=== PATIENT | female | born 1930 | race Hispanic/Latino ===

== ENCOUNTER 2019-09-08 15:04 | Emergency (ER) | payer MEDICARE ==
[2019-09-08 15:49] LABS: BASOPHILS % (AUTO) 0.3 % (0.0-5.0); EOSINOPHILS % (AUTO) 0.5 % (0.0-8.0); HEMATOCRIT 42.2 % (36-48); LYMPHOCYTES % (AUTO) 20.7 % (21.0-51.0); MEAN CORPUSCULAR HGB CONC 32.7 g/dL (32.0-36.0); MEAN CORPUSCULAR VOLUME 97.9 fL (79-99); MONOCYTES % (AUTO) 5.7 % (3.0-13.0); NEUTROPHILS % (AUTO) 72.6 % (40.0-77.0); PLATELET COUNT (AUTO) 175 K/uL (130-400); RED BLOOD CELL COUNT(AUTO) 4.31 MIL/uL (4.00-5.50); RED CELL DISTRIBUTION WIDTH 12.3 % (11.0-15.5); WHITE BLOOD COUNT (AUTO) 6.3 K/uL (4.8-10.8)
[2019-09-08 16:02] LABS: INR 0.94 (0.85-1.15); PROTHROMBIN TIME 10.2 SEC (9.6-11.6)
[2019-09-08 16:03] LABS: CARBON DIOXIDE 28 mmol/L (21-32); CHLORIDE 105 mmol/L (101-111); CREATININE 1.2 mg/dL (0.5-1.5); GLOMERULAR FILTR. RATE CALC 45 mL/min (>60); GLUCOSE,RANDOM 82 mg/dL (70-105); POTASSIUM 4.3 mmol/L (3.5-5.1); SODIUM SERUM 145 mmol/L (136-145); UREA NITROGEN, BLOOD 30 mg/dL (7-18)
[2019-09-08 16:09] LABS: APPEARANCE,URINE CLEAR (CLEAR); BILIRUBIN,URINE MODERATE (NEGATIVE); COLOR,URINE YELLOW (YELLOW); GLUCOSE, URINE (UA) NEGATIVE (NEGATIVE); KETONES,URINE 15 mg/dL (NEGATIVE); LEUKOCYTE ESTERASE ,URINE NEGATIVE (NEGATIVE); NITRATE,URINE NEGATIVE (NEGATIVE); OCCULT BLOOD,URINE MODERATE (NEGATIVE); PH,URINE 5.5 (5.0-8.0); PROTEIN,URINE TRACE mg/dL (NEGATIVE); UROBILINOGEN,URINE 0.2 mg/dL (0.2-1.0)
[2019-09-08 16:29] LABS: ALANINE AMINOTRANSFERASE 17 U/L (12-78); ASPARTATE AMINOTRANSFERASE 44 U/L (10-37); BILIRUBIN,TOTAL 0.6 mg/dL (0.2-1.0); MYOGLOBIN 1431 ng/mL (10-92); TOTAL PROTEIN, SERUM 8.2 g/dL (6.0-8.3); TROPONIN I < 0.04 ng/mL (0.00-0.06)
[2019-09-08 16:31] LABS: CREATINE KINASE, TOTAL 494 U/L (21-232)
[2019-09-08 16:31] LABS: BACTERIA,URINE Few /HPF (None Seen); SQUAMOUS EPITHELIAL CELL,UR Moderate /HPF (0-2); WBC,URINE 0-1 /HPF (0-1)
[2019-09-08] MEDS ORDERED: CEFTRIAXONE SODIUM 2 GM VIAL ONE (16:53)
== END 2019-09-08 19:07 | disposition home or self-care (01) ==
LOC: EDH 15:04
DX: R53.1 Weakness (principal); R41.82 Altered mental status, unspecified; F32.9 Major depressive disorder, single episode, unspecified; E78.5 Hyperlipidemia, unspecified; F03.90 Unspecified dementia, unspecified severity, without behavioral disturbance, psychotic disturbance, mood disturbance, and anxiety
CPT/HCPCS: 36415; 70450; 71045; 80053; 81001; 82550; 83605; 83874; 84145; 84484; 85025; 85610; 85730; 87040 ×2; 87088; 93005; 96374; 99285; J0696

== ENCOUNTER 2019-09-11 15:24 | Inpatient (IN) | payer MEDICARE ==
[~2019-09-11] VITALS: Ht 162.6 cm; Wt 50.7 kg
[2019-09-11 17:01] LABS: BASOPHILS % (AUTO) 0.5 % (0.0-5.0); EOSINOPHILS % (AUTO) 0.5 % (0.0-8.0); HEMATOCRIT 41.2 % (36-48); LYMPHOCYTES % (AUTO) 20.3 % (21.0-51.0); MEAN CORPUSCULAR HEMOGLOBIN 31.7 pg (27.0-33.0); MONOCYTES % (AUTO) 6.2 % (3.0-13.0); NEUTROPHILS % (AUTO) 72.3 % (40.0-77.0); PLATELET COUNT (AUTO) 177 K/uL (130-400); RED BLOOD CELL COUNT(AUTO) 4.16 MIL/uL (4.00-5.50); RED CELL DISTRIBUTION WIDTH 12.8 % (11.0-15.5); WHITE BLOOD COUNT (AUTO) 6.1 K/uL (4.8-10.8)
[2019-09-11 17:12] LABS: CREATININE 1.3 mg/dL (0.5-1.5); POTASSIUM 3.6 mmol/L (3.5-5.1)
[2019-09-11 17:17] LABS: ALBUMIN 4.1 g/dL (3.5-5.0); BILIRUBIN,TOTAL 0.4 mg/dL (0.2-1.0); TOTAL PROTEIN, SERUM 8.4 g/dL (6.0-8.3)
[2019-09-11] MEDS ORDERED: SODIUM CHLORIDE 0.9% 1000ML 1,000 ML IV SCH (18:39)
[2019-09-11] MEDS ORDERED: LACTULOSE 20 GM/30 ML UDCUP PO PRN (18:45)
[2019-09-11] MEDS ORDERED: ACETAMINOPHEN 325 MG TAB PO PRN ×2 (18:45)
[2019-09-11] MEDS ORDERED: ONDANSETRON HCL 4 MG/2 ML VIAL IV PRN (18:45)
[2019-09-11 20:25] LABS: CREATINE KINASE, TOTAL 218 U/L (21-232); MYOGLOBIN 898 ng/mL (10-92)
[2019-09-11] MEDS: INSULIN HUMULIN R 100 UNIT/ML 3ML SQ SCH (21:00)
[2019-09-11] MEDS ORDERED: DEXTROSE 50%-WATER 50 ML DISP.SYRIN IV ONE (22:12)
[2019-09-11] MEDS ORDERED: FAMOTIDINE/PF 20 MG/2 ML VIAL IV ONE (22:23)
[2019-09-12] MEDS ORDERED: DEXTROSE 50%-WATER 50 ML DISP.SYRIN IV ONE (01:46)
[2019-09-12] MEDS ORDERED: DEXTROSE 5 % AND 0.9 % NACL 1,000 ML IV ONE (02:06)
[2019-09-12] MEDS: DEXTROSE 5 % AND 0.9 % NACL 1,000 ML IV SCH ×2 (02:15→12:15)
[2019-09-12] MEDS ORDERED: DEXTROSE 50%-WATER 50 ML DISP.SYRIN IV PRN (02:15)
[2019-09-12] MEDS ORDERED: GLUCAGON 1MG KIT 1 MG ML IM PRN ×2 (02:15)
[2019-09-12 05:49] LABS: BASOPHILS % (AUTO) 0.4 % (0.0-5.0); EOSINOPHILS % (AUTO) 0.3 % (0.0-8.0); HEMATOCRIT 36.8 % (36-48); LYMPHOCYTES % (AUTO) 9.9 % (21.0-51.0); MEAN CORPUSCULAR HGB CONC 32.6 g/dL (32.0-36.0); MEAN CORPUSCULAR VOLUME 98.1 fL (79-99); MONOCYTES % (AUTO) 6.4 % (3.0-13.0); NEUTROPHILS % (AUTO) 82.5 % (40.0-77.0); PLATELET COUNT (AUTO) 162 K/uL (130-400); RED BLOOD CELL COUNT(AUTO) 3.75 MIL/uL (4.00-5.50); RED CELL DISTRIBUTION WIDTH 12.7 % (11.0-15.5); WHITE BLOOD COUNT (AUTO) 7.4 K/uL (4.8-10.8)
[2019-09-12 05:55] LABS: CREATININE 0.9 mg/dL (0.5-1.5); POTASSIUM 3.5 mmol/L (3.5-5.1)
[2019-09-12] MEDS: INSULIN HUMULIN R 100 UNIT/ML 3ML SQ SCH ×4 (07:30→21:00)
[2019-09-12 09:19] VITALS: BP 154/61
--- NOTE | 2019-09-12 09:30 | NUR ---
DYSPHAGIA EVAL COMPLETED HIGH RISK FOR ASPIRATION AT THIS TIME. RECOMMEND SHEEP KILLER ALTERNATE MEANS OF NUTRITION/HYDRATION. MAGNETIC TESTER COORDINATED WITH NURSE BEYER OF RESULTS AND RECOMMENDATIONS. Addendum: 09/12/[address] MARANDA Amended: Links added.
--- NOTE | 2019-09-12 10:04 | NUR ---
UPDATED MD ON DISCHARGE PLAN-- AWAITING RESPONSE CRISELDA PERAZA FROM [facility] EMERGENCY DEPARTMENT- PT WILL GO TO [facility] PER REP/FAMILY PLAN- DIRECT ADMIT WAS BEING ARRANGED PRIOR TO HER RECNET DECLINE THAT [facility]US HER TO [facility] REQUESTING THAT REFERRAL BE INITIATED SO THAT SHE CAN DO THE COVID SCREENING SWAB NEEDED FOR ADMISSION TO THAT FACILITY. RATIONALE :SO THERE IS NO DELAY WHEN PATIENT READY FOR DISCHARGE DR GABRIEL CONTACTED WITH THIS INFORMATION. AWAITING RESPONSE Addendum: 09/12/19 at 1007 by AISSATOU GIRON RN CM Amended: Links added.
--- NOTE | 2019-09-12 10:30 | NUR ---
IA DONE WITH FAMILY VIA PHONE SPOKE WITH FABY DORADO, RE DISCHARGE PLANNING PATIENT LIVES WITH SPOUSE, ALSO DEBILITATED HAS ALL DME WALKER, RENE, SHOWER CHAIR. NO PROVIDER . FABY SATES THAT THE PLAN IS TO ADMIT TO [facility] ON DISCHARGE. RAMAN RECIEVED, CALL TO , ORDER FOR REFERRAL [facility] CALLED, WHO CAME SWABBED PATIENT FOR COVID SCREENING FOR ADMITTO SNF Addendum: 09/13/19 at 0941 by AISSATOU GIRON RN Amended: Links added.
[2019-09-12 11:30] VITALS: BP 144/49
[2019-09-12] MEDS: FAMOTIDINE/PF 20 MG/2 ML VIAL IV SCH (11:33)
--- NOTE | 2019-09-12 11:49 | NUR ---
RD NOTIFICATION Pt admitted with GBW, poor appetite, AMS. Hx of dementia, DM, HTN. Pt with poor appetite, inadequate oral intake x 5 days. Swallowing difficulty. S/p SECURITIES COMPLIANCE EXAMINER eval; MCFP altered means nutrition recommended. Pending feeding tube placement. Pt Height and weight unknown. Tube feeding, Glucerna 1.5 @25mls can be initiated, 100mls Free H2O Flushes Q6hrs. RD to follow up with tube feeding recommendations once Pt data is updated. Addendum: 09/12/19 at [address] Amended: Links added.
[2019-09-12] MEDS ORDERED: ATOR10 PEG ×2 (12:38)
[2019-09-12] MEDS ORDERED: SERT100T12 PEG ×2 (12:38)
[2019-09-12] MEDS ORDERED: LISI-617 PEG ×2 (12:38)
[2019-09-12] MEDS ORDERED: METF-446 PEG ×2 (12:38)
[2019-09-12] MEDS ORDERED: MEMA1CAP3 PEG ×2 (12:38)
[2019-09-12 16:09] VITALS: BP 155/49
[2019-09-12 19:31] VITALS: BP 126/69
[2019-09-12 23:43] VITALS: BP 157/51
[2019-09-13] MEDS: DEXTROSE 5 % AND 0.9 % NACL 1,000 ML IV SCH ×2 (02:07→09:43)
[2019-09-13 03:56] VITALS: BP 143/57
[2019-09-13] MEDS: INSULIN HUMULIN R 100 UNIT/ML 3ML SQ SCH ×4 (06:57→21:00)
[2019-09-13 08:00] VITALS: BP 160/53
[2019-09-13] MEDS: METFORMIN HCL 500 MG TABLET PO SCH (08:00)
[2019-09-13] MEDS: [UNRECOGNIZED DRUG - OTHER] PO SCH (09:00)
[2019-09-13] MEDS: LISINOPRIL 5 MG TABLET PO SCH (09:00)
[2019-09-13] MEDS: SERTRALINE HCL 50 MG TABLET PO SCH ×2 (09:00→21:00)
--- NOTE | 2019-09-13 09:41 | NUR ---
MBSS RESULTS RELAYED TO MD CALL BACK, PLEASE CALL FAMILY AND DISCUSS REUSLT - ASK IF THEY WANT PEG. IF- THEY DO- CALL FOR GI,. CALL ATTEMPTED TO BOTH NUBMERS ON FACE SHEET- FABY NICHOLS. NO ANSWER. VOICE MESSAGE LEFT. WILL FOLLOW UP Addendum: 09/13/19 at 0965 by AISSATOU GIRON RN CM Amended: Links added.
[2019-09-13] MEDS: FAMOTIDINE/PF 20 MG/2 ML VIAL IV SCH (09:52)
[2019-09-13 10:49] VITALS: BP 155/52
--- NOTE | 2019-09-13 11:20 | NUR ---
ORAL CARE PERFORMED USING 24 HR ORAL CARE KIT; PT. RELUCTANT TO ALLOW CARE PERFORMED BUT ABLE TO ACCOMPLISH.
[2019-09-13] MEDS: SODIUM BICARB 8.4% 50ML SYRING 150 MEQ in DEXTROSE 5%-WATER 1,000 ML IV SCH (12:52)
[2019-09-13 14:51] LABS: CREATINE KINASE, TOTAL 174 U/L (21-232); MYOGLOBIN 158 ng/mL (10-92)
[2019-09-13 15:45] VITALS: BP 157/64
--- NOTE | 2019-09-13 16:28 | NUR ---
RD UPDATE Anthropometric data recorded. Pt pending PEG placement. RD provided Tube feeding recommendations. Recommendations placed in Pt chart. Bolus feedings recommended upon discharge. Recommend continuous tube feeding: Glucerna 1.5 initiated at 20mls for first 10hours. increase rate as tolerated by 5ml every 5 hours to goal. Goal Rate: 40mls/hr to provide 1440kcal, 79gm protein, 729mL free H2O. Flushes: [address] to continue to monitor. Please notify as additional nutrition concerns arise. Thank you.
[2019-09-13 20:11] VITALS: BP 176/80
[2019-09-13] MEDS: ATORVASTATIN CALCIUM 10 MG TABLET PO SCH (21:00)
[2019-09-13 21:22] LABS: CREATINE KINASE, TOTAL 194 U/L (21-232); MYOGLOBIN 293 ng/mL (10-92)
[2019-09-13] MEDS: HYDRALAZINE HCL 20 MG/ML VIAL IV PRN (21:27)
[2019-09-13 23:15] VITALS: BP 145/88
[2019-09-14 03:42] VITALS: BP 161/67
[2019-09-14 04:05] LABS: BASOPHILS % (AUTO) 0.2 % (0.0-5.0); EOSINOPHILS % (AUTO) 1.1 % (0.0-8.0); HEMATOCRIT 38.2 % (36-48); LYMPHOCYTES % (AUTO) 17.9 % (21.0-51.0); MEAN CORPUSCULAR HEMOGLOBIN 31.9 pg (27.0-33.0); MEAN CORPUSCULAR VOLUME 93.9 fL (79-99); MONOCYTES % (AUTO) 7.8 % (3.0-13.0); NEUTROPHILS % (AUTO) 72.7 % (40.0-77.0); PLATELET COUNT (AUTO) 167 K/uL (130-400); RED BLOOD CELL COUNT(AUTO) 4.07 MIL/uL (4.00-5.50); RED CELL DISTRIBUTION WIDTH 11.9 % (11.0-15.5)
[2019-09-14 04:30] LABS: ALANINE AMINOTRANSFERASE 29 U/L (12-78); ALBUMIN 3.1 g/dL (3.5-5.0); ASPARTATE AMINOTRANSFERASE 44 U/L (10-37); BILIRUBIN,TOTAL 0.4 mg/dL (0.2-1.0); CARBON DIOXIDE 32 mmol/L (21-32); CHLORIDE 102 mmol/L (101-111); CREATININE 0.8 mg/dL (0.5-1.5); GLOMERULAR FILTR. RATE CALC 72 mL/min (>60); GLUCOSE,RANDOM 123 mg/dL (70-105); PHOSPHORUS 1.4 mg/dL (2.5-4.9); SODIUM SERUM 139 mmol/L (136-145); TOTAL PROTEIN, SERUM 6.7 g/dL (6.0-8.3); UREA NITROGEN, BLOOD 11 mg/dL (7-18)
[2019-09-14] MEDS ORDERED: LIDOCAINE HCL-MPF 1% 2ML VIAL IV PRN (04:45)
[2019-09-14] MEDS ORDERED: POTASSIUM CHLORIDE 20MEQ/100ML 100 ML IV ONE (04:56)
[2019-09-14] MEDS: INSULIN HUMULIN R 100 UNIT/ML 3ML SQ SCH ×4 (06:30→21:00)
[2019-09-14 08:00] VITALS: BP 169/75
[2019-09-14] MEDS: METFORMIN HCL 500 MG TABLET PO SCH (08:00)
[2019-09-14] MEDS: LISINOPRIL 5 MG TABLET PO SCH (09:00)
[2019-09-14] MEDS: SERTRALINE HCL 50 MG TABLET PO SCH ×2 (09:00→20:47)
[2019-09-14] MEDS: [UNRECOGNIZED DRUG - OTHER] PO SCH (09:00)
[2019-09-14] MEDS: FAMOTIDINE/PF 20 MG/2 ML VIAL IV SCH (09:06)
[2019-09-14] MEDS: HYDRALAZINE HCL 20 MG/ML VIAL IV PRN (09:06)
[2019-09-14] MEDS: POTASSIUM CHLORIDE 10MEQ/100ML 100 ML IV PRN (09:07)
[2019-09-14 09:31] LABS: CREATINE KINASE, TOTAL 315 U/L (21-232); MYOGLOBIN 337 ng/mL (10-92)
[2019-09-14] MEDS ORDERED: MAGNESIUM 2GM PREMIX 50ML 50 ML IV PRN (10:00)
[2019-09-14 11:21] VITALS: BP 145/100
[2019-09-14 14:02] LABS: CREATINE KINASE, TOTAL 305 U/L (21-232); MYOGLOBIN 407 ng/mL (10-92)
[2019-09-14 16:00] VITALS: BP 177/80
[2019-09-14 19:00] VITALS: BP 154/59
[2019-09-14] MEDS: ATORVASTATIN CALCIUM 10 MG TABLET PO SCH (20:47)
[2019-09-14 21:33] LABS: CREATINE KINASE, TOTAL 316 U/L (21-232); MYOGLOBIN 374 ng/mL (10-92)
[2019-09-14 23:00] VITALS: BP 170/73
[2019-09-15] VITALS (25 sets, daily range): BP systolic 65–170; BP diastolic 37–69
[2019-09-15] MEDS: HYDRALAZINE HCL 20 MG/ML VIAL IV PRN (00:05)
[2019-09-15 06:03] LABS: BASOPHILS % (AUTO) 0.2 % (0.0-5.0); EOSINOPHILS % (AUTO) 1.5 % (0.0-8.0); HEMATOCRIT 37.1 % (36-48); LYMPHOCYTES % (AUTO) 21.5 % (21.0-51.0); MEAN CORPUSCULAR HEMOGLOBIN 32.7 pg (27.0-33.0); MEAN CORPUSCULAR HGB CONC 34.5 g/dL (32.0-36.0); MEAN CORPUSCULAR VOLUME 94.6 fL (79-99); MONOCYTES % (AUTO) 10.2 % (3.0-13.0); NEUTROPHILS % (AUTO) 66.4 % (40.0-77.0); PLATELET COUNT (AUTO) 158 K/uL (130-400); RED BLOOD CELL COUNT(AUTO) 3.92 MIL/uL (4.00-5.50); RED CELL DISTRIBUTION WIDTH 12.3 % (11.0-15.5); WHITE BLOOD COUNT (AUTO) 5.9 K/uL (4.8-10.8)
[2019-09-15 06:27] LABS: BILIRUBIN,TOTAL 0.4 mg/dL (0.2-1.0); CREATININE 0.8 mg/dL (0.5-1.5); TOTAL PROTEIN, SERUM 6.3 g/dL (6.0-8.3)
[2019-09-15] MEDS: INSULIN HUMULIN R 100 UNIT/ML 3ML SQ SCH ×4 (06:40→21:00)
[2019-09-15] MEDS: LISINOPRIL 5 MG TABLET PO SCH (07:53)
[2019-09-15] MEDS: [UNRECOGNIZED DRUG - OTHER] PO SCH (07:53)
[2019-09-15] MEDS: METFORMIN HCL 500 MG TABLET PO SCH (07:53)
[2019-09-15] MEDS: FAMOTIDINE/PF 20 MG/2 ML VIAL IV SCH (07:53)
[2019-09-15] MEDS: SERTRALINE HCL 50 MG TABLET PO SCH ×2 (07:53→22:21)
[2019-09-15] MEDS ORDERED: PROPOFOL 10 MG/ML 20ML VIAL IV ONE (08:04)
[2019-09-15] MEDS ORDERED: SUCCINYLCHOLINE CHLORIDE 20 MG/ML 10 ML VIAL ONE (08:05)
[2019-09-15] MEDS ORDERED: LIDOCAINE HCL-MPF 2% 5ML VIAL ONE (08:06)
[2019-09-15] MEDS ORDERED: PHENYLEPHRINE HCL 10 MG/ML 1ML VIAL IV ONE (08:16)
[2019-09-15] MEDS ORDERED: EPHEDRINE SULFATE 50 MG/ML AMPULE ONE (08:25)
[2019-09-15 10:23] LABS: CREATINE KINASE, TOTAL 214 U/L (21-232); MYOGLOBIN 209 ng/mL (10-92)
--- NOTE | 2019-09-15 13:15 | NUR ---
SPOKE WITH PT'S DAUGHTER AND SHE VOICED HER CONCERN REGARDING PATIENT'S LEFT ARM WEAKNESS THAT IS NEW TO ADMISSION. I INFOR[facility] THIS. NO ORDERS AT THIS TIME.
[2019-09-15] MEDS ORDERED: POTASSIUM CHLORIDE 10% ELIXIR 20 MEQ/15 ML UDCUP PO SCH (16:45)
--- NOTE | 2019-09-15 17:00 | NUR ---
STARTED TUBE FEEDING, GLUCERNA 1.5 AT 20ML/HR RECOMMENDED BY SUPERIOR COURT JUDGE. FLUSHED PEG TUBE WITH 130ML OF WATER. HOB ELEVATED AT 35DEGREES. TUBING SECURED.
--- NOTE | 2019-09-15 19:42 | NUR ---
ZOZIE F/U ASHLYN spoke to Filomena with [facility]. States pt is accepted pending their COVID test. States she anticipates results for tomorrow. CM faxed COVID form.
[2019-09-15] MEDS: ATORVASTATIN CALCIUM 10 MG TABLET PO SCH (22:21)
[2019-09-15] MEDS: POTASSIUM CHLORIDE 10% ELIXIR 20 MEQ/15 ML UDCUP PO SCH (22:22)
[2019-09-15] MEDS: SODIUM BICARB 8.4% 50ML SYRING 150 MEQ in DEXTROSE 5%-WATER 1,000 ML IV SCH (22:24)
[2019-09-16 04:12] VITALS: BP 122/47
[2019-09-16 05:20] LABS: BASOPHILS % (AUTO) 0.1 % (0.0-5.0); EOSINOPHILS % (AUTO) 0.8 % (0.0-8.0); HEMATOCRIT 28.7 % (36-48); MEAN CORPUSCULAR HEMOGLOBIN 32.5 pg (27.0-33.0); MEAN CORPUSCULAR HGB CONC 33.4 g/dL (32.0-36.0); MEAN CORPUSCULAR VOLUME 97.3 fL (79-99); MONOCYTES % (AUTO) 6.2 % (3.0-13.0); NEUTROPHILS % (AUTO) 82.5 % (40.0-77.0); PLATELET COUNT (AUTO) 103 K/uL (130-400); RED BLOOD CELL COUNT(AUTO) 2.95 MIL/uL (4.00-5.50); RED CELL DISTRIBUTION WIDTH 12.9 % (11.0-15.5); WHITE BLOOD COUNT (AUTO) 8.3 K/uL (4.8-10.8)
[2019-09-16] MEDS: INSULIN HUMULIN R 100 UNIT/ML 3ML SQ SCH ×3 (06:48→15:44)
[2019-09-16 07:00] VITALS: BP 133/63
[2019-09-16 07:40] LABS: ALBUMIN 2.7 g/dL (3.5-5.0); BILIRUBIN,TOTAL 0.3 mg/dL (0.2-1.0); CREATININE 0.9 mg/dL (0.5-1.5); POTASSIUM 3.9 mmol/L (3.5-5.1); TOTAL PROTEIN, SERUM 6.1 g/dL (6.0-8.3)
--- NOTE | 2019-09-16 08:42 | NUR ---
RD UPDATE PEG placement notification received. Tube Feeding recommendations placed in Pt chart 09/13/19. Recommend resume continuous tube feedings. Recommend initiate continuous Glucerna 1.5 @20mls/hour for first 5 hours. Increase rate as tolerated by 5mL every 5 hours to goal Goal rate of 40mls/hr to provide 1440kcal, 79gm protein, 729mL free H2O. Recommended flushes: 130mL Q6hrs. Bolus feedings also provided in Pt chart.
[2019-09-16] MEDS: [UNRECOGNIZED DRUG - OTHER] PO SCH (09:00)
[2019-09-16] MEDS: FAMOTIDINE/PF 20 MG/2 ML VIAL IV SCH (09:39)
[2019-09-16] MEDS: METFORMIN HCL 500 MG TABLET PO SCH (09:39)
[2019-09-16] MEDS: SERTRALINE HCL 50 MG TABLET PO SCH ×2 (09:39→19:58)
[2019-09-16] MEDS: POTASSIUM CHLORIDE 10% ELIXIR 20 MEQ/15 ML UDCUP PO SCH (09:39)
[2019-09-16] MEDS: LISINOPRIL 5 MG TABLET PO SCH (09:39)
[2019-09-16 11:00] VITALS: BP 136/51
--- NOTE | 2019-09-16 13:51 | NUR ---
CM Note: [facility] approval, pending covid result CM spoke to Filomena segura/[facility], received updated clinicals. Pt has approval, just pending covid result that was sent out last week. Will call CM once pt clear to go, aware there is dc ordered today. EMS arranged and faxed for today, primary nurse to call [facility] once pt ready to DC. Primary nurse aware. CM to cont to follow up.
[2019-09-16 15:20] VITALS: BP 158/62
--- NOTE | 2019-09-16 16:15 | NUR ---
[facility] CONSULT PER PATIENT'S NURSE VIRIDIANA BEYER WOUNDS PRESENT. Addendum: 09/17/19 at 0808 by SABI CANSECO LVN Amended: Links added.
[2019-09-16] MEDS: SODIUM BICARB 8.4% 50ML SYRING 150 MEQ in DEXTROSE 5%-WATER 1,000 ML IV SCH (17:44)
[2019-09-16 19:10] VITALS: BP 149/56
[2019-09-16] MEDS: ATORVASTATIN CALCIUM 10 MG TABLET PO SCH (19:58)
[2019-09-17 00:05] VITALS: BP 127/77
[2019-09-17 04:09] VITALS: BP 123/65
[2019-09-17 05:57] LABS: BASOPHILS % (AUTO) 0.1 % (0.0-5.0); EOSINOPHILS % (AUTO) 0.8 % (0.0-8.0); HEMATOCRIT 32.9 % (36-48); LYMPHOCYTES % (AUTO) 7.4 % (21.0-51.0); MEAN CORPUSCULAR HEMOGLOBIN 31.5 pg (27.0-33.0); MEAN CORPUSCULAR HGB CONC 32.8 g/dL (32.0-36.0); MEAN CORPUSCULAR VOLUME 95.9 fL (79-99); MONOCYTES % (AUTO) 6.7 % (3.0-13.0); NEUTROPHILS % (AUTO) 84.6 % (40.0-77.0); PLATELET COUNT (AUTO) 136 K/uL (130-400); RED BLOOD CELL COUNT(AUTO) 3.43 MIL/uL (4.00-5.50); RED CELL DISTRIBUTION WIDTH 12.8 % (11.0-15.5); WHITE BLOOD COUNT (AUTO) 11.9 K/uL (4.8-10.8)
[2019-09-17] MEDS: INSULIN HUMULIN R 100 UNIT/ML 3ML SQ SCH ×4 (05:57→17:58)
[2019-09-17 06:14] LABS: ALBUMIN 2.5 g/dL (3.5-5.0); BILIRUBIN,TOTAL 0.3 mg/dL (0.2-1.0); CREATININE 0.8 mg/dL (0.5-1.5); POTASSIUM 3.4 mmol/L (3.5-5.1); TOTAL PROTEIN, SERUM 6.1 g/dL (6.0-8.3)
[2019-09-17] MEDS: POTASSIUM CHLORIDE 10MEQ/100ML 100 ML IV PRN (06:30)
[2019-09-17 07:30] VITALS: BP 135/50
[2019-09-17] MEDS: METFORMIN HCL 500 MG TABLET PO SCH (08:56)
[2019-09-17] MEDS: POTASSIUM CHLORIDE 10% ELIXIR 20 MEQ/15 ML UDCUP PO SCH (08:56)
[2019-09-17] MEDS: [UNRECOGNIZED DRUG - OTHER] PO SCH (08:57)
[2019-09-17] MEDS: LISINOPRIL 5 MG TABLET PO SCH (08:57)
[2019-09-17] MEDS: SERTRALINE HCL 50 MG TABLET PO SCH ×2 (08:57→21:36)
[2019-09-17] MEDS: FAMOTIDINE/PF 20 MG/2 ML VIAL IV SCH (10:12)
[2019-09-17] MEDS: SODIUM BICARB 8.4% 50ML SYRING 150 MEQ in DEXTROSE 5%-WATER 1,000 ML IV SCH ×2 (10:41→23:56)
[2019-09-17 11:24] VITALS: BP 145/54
[2019-09-17 15:32] VITALS: BP 136/55
[2019-09-17 19:40] VITALS: BP 152/63
[2019-09-17] MEDS: ATORVASTATIN CALCIUM 10 MG TABLET PO SCH (21:35)
[2019-09-18 00:06] VITALS: BP 154/59
[2019-09-18 04:40] VITALS: BP 115/56
[2019-09-18] MEDS: INSULIN HUMULIN R 100 UNIT/ML 3ML SQ SCH ×3 (06:00→12:00)
[2019-09-18 07:32] VITALS: BP 134/56
--- NOTE | 2019-09-18 08:38 | NUR ---
DR. GABRIEL PAGED; TEMP 100.0 ORDERS ENTERED.
[2019-09-18] MEDS: [UNRECOGNIZED DRUG - OTHER] PO SCH (09:00)
--- NOTE | 2019-09-18 10:01 | NUR ---
CM Note: [facility] acceptance CM spoke to Filomena segura/oliva Wihtaker, pt has acceptance. EMS arranged and faxed for today, primary nurse to call [facility] once pt ready to DC. Primary nurse aware. CM to cont to follow up.
[2019-09-18 11:01] VITALS: BP 138/55
[2019-09-18] MEDS: SERTRALINE HCL 50 MG TABLET PO SCH (11:41)
[2019-09-18] MEDS: LISINOPRIL 5 MG TABLET PO SCH (11:41)
[2019-09-18] MEDS: POTASSIUM CHLORIDE 10% ELIXIR 20 MEQ/15 ML UDCUP PO SCH (11:41)
[2019-09-18] MEDS: METFORMIN HCL 500 MG TABLET PO SCH (11:42)
[2019-09-18] MEDS: FAMOTIDINE/PF 20 MG/2 ML VIAL IV SCH (11:42)
[2019-09-18 12:22] LABS: APPEARANCE,URINE Clear (CLEAR); BILIRUBIN,URINE Negative (NEGATIVE); COLOR,URINE Yellow (YELLOW); GLUCOSE, URINE (UA) Negative (NEGATIVE); KETONES,URINE Negative (NEGATIVE); LEUKOCYTE ESTERASE ,URINE Trace (NEGATIVE); NITRATE,URINE Negative (NEGATIVE); OCCULT BLOOD,URINE Negative (NEGATIVE); PROTEIN,URINE POS 1+ mg/dL (NEGATIVE); UROBILINOGEN,URINE 0.2 mg/dL (0.2-1.0)
[2019-09-18 12:35] LABS: BACTERIA,URINE Rare /HPF (None Seen); RBC,URINE 0-1 /HPF (0-1); SQUAMOUS EPITHELIAL CELL,UR Few /HPF (0-2); WBC,URINE 0-1 /HPF (0-1)
--- NOTE | 2019-09-18 14:58 | NUR ---
RD FOLLOW UP Pt continues to tolerate Tube Feeding. D/C orders in. Bolus feedings provided if needed. Pt with desirable weight gain. Recommend continue Tube Feedings. RD to continue to monitor. Please notify as additional concerns arise. Thank you. Addendum: 09/18/19 at [address] Amended: Links added.
[2019-09-18 15:26] VITALS: BP 147/50
--- NOTE | 2019-09-18 16:38 | NUR ---
EMS PAGED, REPORT GIVEN TO MAURICIO FROM [facility]
--- NOTE | 2019-09-18 18:00 | NUR ---
PT D/C TO [facility] SPOKE WITH DAUGHTER FABY DORADO NURSE MAURICIO AWARE AND RECEIVED REPORT. IV OUT, INTACT, NO BLEEDING. PATIENT IN NO DISTRESS. TELE REMOVED BY PARKING WORKER.
== END 2019-09-18 18:00 | DRG 558 ==
LOC: EDH 15:24 → OBSVTOIN 18:39 → EDHIP 18:39 → 4AH 09-12 08:12 → 4BH 09-16 13:54
PROVIDERS: ADMIT Internal Medicine; ATTEND Internal Medicine
PROC: 0DH63UZ Insertion of Feeding Device into Stomach, Percutaneous Approach (ICD-10-PCS; principal; 2019-09-15)
DX: M62.82 Rhabdomyolysis (principal); E44.0 Moderate protein-calorie malnutrition; Z68.1 Body mass index [BMI] 19.9 or less, adult; F03.90 Unspecified dementia, unspecified severity, without behavioral disturbance, psychotic disturbance, mood disturbance, and anxiety; R13.12 Dysphagia, oropharyngeal phase; E78.5 Hyperlipidemia, unspecified; E87.6 Hypokalemia; E11.9 Type 2 diabetes mellitus without complications; G47.00 Insomnia, unspecified; I10 Essential (primary) hypertension; K59.00 Constipation, unspecified; E86.0 Dehydration; R53.81 Other malaise; F32.9 Major depressive disorder, single episode, unspecified; R63.0 Anorexia; Z74.01 Bed confinement status
CPT/HCPCS: 36415; 43246; 70450; 71045; 80048; 80053; 81001; 82550; 82948; 83605; 83690; 83735; 83874; 84100; 84145; 84484; 85018; 85025; 85610; 85730; 87040; 87088; 87486; 87581; 87633; 87798; 92610; 93005; 96374; 97039; A4344; A4606; A6250; G0378; J0330; J0360; J0696; J2370; J2704; J3475; J3480; J3490; J7042; J7070

== ENCOUNTER 2019-09-23 14:34 | Inpatient (IN) | payer MEDICARE ==
[~2019-09-23] VITALS: Ht 149.9 cm; Wt 42.5 kg
[~2019-09-23 14:34] MED LIST: ATOR10 PEG; LISI-617 PEG; MEMA1CAP3 PEG; METF-446 PEG; SERT100T12 PEG
[2019-09-23] MEDS ORDERED: LACTULOSE 20 GM/30 ML UDCUP PO PRN (17:00)
[2019-09-23] MEDS ORDERED: HYDRALAZINE HCL 20 MG/ML VIAL IV PRN (17:00)
[2019-09-23] MEDS ORDERED: ONDANSETRON HCL 4 MG/2 ML VIAL IV PRN (17:00)
[2019-09-23 19:55] VITALS: BP 165/58
--- NOTE | 2019-09-23 21:15 | NUR ---
TELEPHONE CONSENT PATIENT HAS ORDER FOR EGD WITH PEG TUBE PLACEMENT. ATTEMPTED TO OBTAIN TELEPHONE CONSENT FROM PATIENT'S DAUGHTER, FABY DORADO AT THIS TIME. NO ANSWER RECEIVED, WILL ATTEMPT AT A LATER TIME.
--- NOTE | 2019-09-23 21:20 | NUR ---
TELEPHONE CONSENT OBTAINED RECEIVED CALL BACK FROM PATIENT'S DAUGHTER, FABY DORADO. TELEPHONE CONSENT OBTAINED FOR EGD-PEG TUBE WITH MAC SCHEDULED FOR TOMORROW (09-24-2019).
[2019-09-23 21:38] LABS: INR 0.99 (0.85-1.15); PARTIAL THROMBOPLASTIN TIME 29.4 SEC (26.3-35.5); PROTHROMBIN TIME 10.7 SEC (9.6-11.6)
[2019-09-23] MEDS ORDERED: POTA10TA11 PEG (23:31)
[2019-09-23] MEDS ORDERED: LACT10SO9 PEG (23:31)
[2019-09-23] MEDS ORDERED: ACET650O3 PEG (23:31)
[2019-09-23] MEDS ORDERED: ASPI-556 PEG (23:31)
[2019-09-23] MEDS ORDERED: PANT40SU PEG (23:42)
[2019-09-23] MEDS: LACTATED RINGERS 1000ML 1,000 ML IV SCH (23:59)
[2019-09-24] VITALS (21 sets, daily range): BP systolic 103–170; BP diastolic 32–92
[2019-09-24] MEDS: LACTATED RINGERS 1000ML 1,000 ML IV SCH ×2 (05:20→17:30)
[2019-09-24 05:26] LABS: BASOPHILS % (AUTO) 0.4 % (0.0-5.0); EOSINOPHILS % (AUTO) 3.1 % (0.0-8.0); HEMATOCRIT 30.5 % (36-48); LYMPHOCYTES % (AUTO) 16.6 % (21.0-51.0); MEAN CORPUSCULAR HEMOGLOBIN 31.6 pg (27.0-33.0); MEAN CORPUSCULAR HGB CONC 33.1 g/dL (32.0-36.0); MEAN CORPUSCULAR VOLUME 95.3 fL (79-99); MONOCYTES % (AUTO) 9.2 % (3.0-13.0); NEUTROPHILS % (AUTO) 70.3 % (40.0-77.0); PLATELET COUNT (AUTO) 223 K/uL (130-400); RED CELL DISTRIBUTION WIDTH 12.2 % (11.0-15.5); WHITE BLOOD COUNT (AUTO) 5.5 K/uL (4.8-10.8)
[2019-09-24 06:08] LABS: ALBUMIN 2.2 g/dL (3.5-5.0); BILIRUBIN,TOTAL 0.3 mg/dL (0.2-1.0); CREATININE 0.9 mg/dL (0.5-1.5); MAGNESIUM 1.9 mg/dL (1.80-2.40); PHOSPHORUS 3.2 mg/dL (2.5-4.9); POTASSIUM 4.4 mmol/L (3.5-5.1); TOTAL PROTEIN, SERUM 5.9 g/dL (6.0-8.3)
[2019-09-24] MEDS ORDERED: CEFAZOLIN SODIUM 1 GM VIAL ONE (09:53)
[2019-09-24] MEDS ORDERED: PROPOFOL 10 MG/ML 20ML VIAL IV ONE (09:53)
--- NOTE | 2019-09-24 14:48 | NUR ---
chart reviewed, open gastrostomy tube planned in am , CALL TO FAMILY RE CONSNET FOR [facility] NO ANSWER, WILL FOLLOW UP Addendum: 09/24/19 at 1448 by AISSATOU GIRON RN CM Amended: Links added.
--- NOTE | 2019-09-24 14:52 | NUR ---
MED RECORD REVIEWED FOR INITIAL ASSESSMENT. PATIENT RE-ADMITTED FROM [facility]. PATIENT WAS THERE FOR NEW PEG, SHORT TERM REHAB, PREVIOUSLY LIVED WITH [facility]OUSE AND HAD ALL DME AND FAMILY SUPPORT, CALL TO DAUGHTER FABY DORADO FOR CONSENT TO [facility]IG[facility] RETURN TO [facility], NO ANSWER CALL TO [facility], ADVISED WANTS ME TO CALL HIS . Addendum: 09/24/19 at 1504 by AISSATOU GIRON RN CM Amended: Links added.
--- NOTE | 2019-09-24 15:04 | NUR ---
EXPECTED RETURN TO [facility] POST FEEDING TUBE/ SURGICAL CLEARANCE/ WILL CONFIRM WITH FAMILY Addendum: 09/24/19 at 1505 by AISSATOU GIRON RN CM Amended: Links added.
--- NOTE | 2019-09-24 17:30 | NUR ---
FABY DORADO, DAUGHTER REPORTS HOSPICE DISCUSSED WITH FAMILY. IF HOSPICE DOES NOT ACCEPT PATIENT WITH TUBE FEEDING, THEY DO NOT WANT PATIENT TO HAVE GASTROSTOMY PLACEMENT DONE. WILL COMMUNICATE REQUEST.
[2019-09-24] MEDS: FAMOTIDINE/PF 20 MG/2 ML VIAL IV SCH (17:46)
[2019-09-24] MEDS ORDERED: ACETAMINOPHEN ELIXIR 650 MG/20.3 ML UDCUP PEG PRN (18:30)
[2019-09-24] MEDS ORDERED: LACTULOSE 20 GM/30 ML UDCUP PEG PRN (18:30)
--- NOTE | 2019-09-24 19:10 | NUR ---
REPORT RECEIVED REPORT FROM TEDDY DUNHAM, NURSES'S ROUNDS DONE. PT IS CALM AND QUITE, RESTING IN BED. Addendum: 09/24/19 at 2200 by LIZZIE AIKEN RN RN Amended: Links added.
[2019-09-24] MEDS: ATORVASTATIN CALCIUM 10 MG TABLET PEG SCH (19:32)
--- NOTE | 2019-09-24 19:41 | NUR ---
MEDS SHIFT ASSESSMENT DONE, PLEASE REFER TO CHART. PT'S BP ELEVATED AT 170/53, HR=80 BPM.MEDICATED WITH HYDRALAZINE IV. WILL RE-ASSESS PT. Addendum: 09/24/19 at 2212 by LIZZIE AIKEN RN RN Amended: Links added.
[2019-09-24] MEDS ORDERED: NON-FORMULARY MEDICATION 1 EACH (Sertraline HCl 100 MG) PEG SCH (21:00)
--- NOTE | 2019-09-24 22:15 | NUR ---
CONFUSED PT IS CALLING AND WANTING HER DAUGHTER TO TAKE HER HOME. PCP TRIED TO RE-ORIENT PT TO TIME AND SPACE BUT STILL CONFUSED. KEPT COMFORTABLE IN BED. WILL MONITOR CLOSELY.
[2019-09-25] VITALS (25 sets, daily range): BP systolic 133–161; BP diastolic 35–60
--- NOTE | 2019-09-25 01:30 | NUR ---
BLOOD SUGAR PT'S BLOOD SUGAR=68. PT IS NPO AND HAS DYSPHAGIA, PENDING PEG PLACEMENT TODAY. PAGED AJ, CHRISTMAS TREE GRADER FINGERNAIL FORMER FOR HOSPITALIST, PAGED VIA ANSWERING SERVICE. CHRISTMAS TREE GRADER CALLED BACK AND INFORMED OF PT'S CONDITION. NEW ORDERS GIVEN, PLEASE REFER TO CPOE. WILL MEDICATE PT.
[2019-09-25] MEDS ORDERED: DEXTROSE 50%-WATER 50 ML DISP.SYRIN IV ONE (01:41)
[2019-09-25] MEDS ORDERED: DEXTROSE 5%-LACTATED RINGERS 1,000 ML IV ONE (01:42)
[2019-09-25] MEDS ORDERED: GLUCAGON 1MG KIT 1 MG ML IM PRN (01:45)
[2019-09-25] MEDS ORDERED: DEXTROSE 50%-WATER 50 ML DISP.SYRIN IV PRN (01:45)
[2019-09-25] MEDS: DEXTROSE 5%-LACTATED RINGERS 1,000 ML IV SCH ×2 (01:45→15:06)
--- NOTE | 2019-09-25 05:06 | NUR ---
ROUNDS PT IS RESTING WELL. NO DISTRESS NOTED. KEPT NPO. FOR MORE CARE AND MANAGEMENT.
[2019-09-25 05:13] LABS: BASOPHILS % (AUTO) 0.1 % (0.0-5.0); EOSINOPHILS % (AUTO) 1.7 % (0.0-8.0); HEMATOCRIT 34.6 % (36-48); LYMPHOCYTES % (AUTO) 5.2 % (21.0-51.0); MEAN CORPUSCULAR HEMOGLOBIN 31.5 pg (27.0-33.0); MEAN CORPUSCULAR HGB CONC 33.8 g/dL (32.0-36.0); MONOCYTES % (AUTO) 6.3 % (3.0-13.0); NEUTROPHILS % (AUTO) 86.3 % (40.0-77.0); PLATELET COUNT (AUTO) 289 K/uL (130-400); RED BLOOD CELL COUNT(AUTO) 3.72 MIL/uL (4.00-5.50); WHITE BLOOD COUNT (AUTO) 10.9 K/uL (4.8-10.8)
[2019-09-25 05:27] LABS: CREATININE 0.8 mg/dL (0.5-1.5)
[2019-09-25] MEDS: ASPIRIN 81 MG EC TAB PEG SCH (07:52)
[2019-09-25] MEDS: POTASSIUM CHLORIDE 10% ELIXIR 20 MEQ/15 ML UDCUP PEG SCH (07:52)
[2019-09-25] MEDS: DONEPEZIL HCL PEG SCH (07:52)
[2019-09-25] MEDS: SERTRALINE HCL 50 MG TABLET PEG SCH (07:52)
[2019-09-25] MEDS: LISINOPRIL 5 MG TABLET PEG SCH (07:52)
[2019-09-25] MEDS: METFORMIN HCL 500 MG TABLET PEG SCH (07:52)
[2019-09-25] MEDS: MEMANTINE HCL PEG SCH (07:52)
--- NOTE | 2019-09-25 08:33 | NUR ---
HOSPICE Sw spoke to CM. Plan is that pt will return to SNF and continue process for [place] Medicaid. Once approved for [place] Medicaid, [place] with hospice at [place]. No SS assistance needed at this time
[2019-09-25] MEDS ORDERED: POTASSIUM CHLORIDE 20 MEQ PEG SCH (09:00)
[2019-09-25] MEDS ORDERED: NON-FORMULARY MEDICATION 1 EACH (Pantoprazole Sodium (Protonix) 40 MG) PEG SCH (09:00)
[2019-09-25] MEDS ORDERED: NON-FORMULARY MEDICATION 1 EACH (Metformin HCl 1,000 MG) PEG SCH (09:00)
[2019-09-25] MEDS: FAMOTIDINE/PF 20 MG/2 ML VIAL IV SCH (09:07)
[2019-09-25] MEDS ORDERED: SODIUM CHLORIDE 0.9% 1000ML 1,000 ML IV ONE (12:22)
[2019-09-25] MEDS ORDERED: PROPOFOL 10 MG/ML 20ML VIAL IV ONE (12:26)
[2019-09-25] MEDS ORDERED: LIDOCAINE HCL MPF 1% 5ML VIAL ONE (12:26)
[2019-09-25] MEDS ORDERED: ROCURONIUM 10MG/1ML SYR 10 MG/ML ML ONE (12:26)
[2019-09-25] MEDS ORDERED: FENTANYL CITRATE PF 50 MCG/1 ML 2ML VIAL ONE ×2 (12:27→13:26)
[2019-09-25] MEDS ORDERED: CEFAZOLIN SODIUM 1 GM VIAL ONE (12:51)
[2019-09-25] MEDS ORDERED: BUPIVACAINE/PF 0.25% 30ML VIAL IJ ONE (13:00)
[2019-09-25] MEDS ORDERED: EPHEDRINE SULFATE 50 MG/ML AMPULE ONE (13:01)
[2019-09-25] MEDS ORDERED: GLYCOPYRROLATE 1 MG/5 ML SYRINGE ONE (13:08)
[2019-09-25] MEDS ORDERED: NEOSTIGMINE 5MG/5ML SYR IV ONE (13:08)
[2019-09-25] MEDS ORDERED: DEXAMETHASONE SOD PHOSPHATE 10MG/ML 1ML VIAL ONE (13:08)
[2019-09-25] MEDS ORDERED: ONDANSETRON HCL 4 MG/2 ML VIAL ONE (13:08)
--- NOTE | 2019-09-25 14:03 | NUR ---
RDSCREEN Pt admitted secondary to Pulled PEG Tube. Pt away for PEG Placement at time of visit. Tube Feeding Recommendations provided to RN. Recommend to resume Bolus Feedings of Glucerna 1.5, 4 cans/day (1 can at 6 AM, 1 can at 10 AM, 1 can at 2 PM, 1 can at 6 PM. 65 mL free water flushes before and after each feeding). Pt BMI 18.9. Tube Feeding recommendations to meet increased nutrient needs. Pt Hx of dementia, DM, HTN, CVA. Serum alb 2.2. RD to continue to monitor. Please notify as additional nutrition concerns arise. Thank you.
[2019-09-25] MEDS ORDERED: MORPHINE SULFATE 2 MG/ML 1ML SYG ONE (17:31)
[2019-09-25] MEDS: MORPHINE SULFATE 2 MG/ML 1ML SYG ONE ×2 (17:35→17:51)
[2019-09-25] MEDS: MORPHINE SULFATE 2 MG/ML 1ML SYG IVP PRN ×2 (17:52→20:33)
[2019-09-25] MEDS: ATORVASTATIN CALCIUM 10 MG TABLET PEG SCH (20:21)
[2019-09-26 00:10] VITALS: BP 137/51
[2019-09-26] MEDS: DEXTROSE 5%-LACTATED RINGERS 1,000 ML IV SCH (04:49)
[2019-09-26 05:01] LABS: BASOPHILS % (AUTO) 0.1 % (0.0-5.0); EOSINOPHILS % (AUTO) 0.6 % (0.0-8.0); HEMATOCRIT 30.2 % (36-48); LYMPHOCYTES % (AUTO) 7.7 % (21.0-51.0); MEAN CORPUSCULAR HEMOGLOBIN 31.7 pg (27.0-33.0); MEAN CORPUSCULAR HGB CONC 33.8 g/dL (32.0-36.0); MEAN CORPUSCULAR VOLUME 93.8 fL (79-99); MONOCYTES % (AUTO) 6.1 % (3.0-13.0); NEUTROPHILS % (AUTO) 85.1 % (40.0-77.0); PLATELET COUNT (AUTO) 275 K/uL (130-400); RED BLOOD CELL COUNT(AUTO) 3.22 MIL/uL (4.00-5.50); RED CELL DISTRIBUTION WIDTH 12.1 % (11.0-15.5); WHITE BLOOD COUNT (AUTO) 9.6 K/uL (4.8-10.8)
[2019-09-26 05:24] LABS: CARBON DIOXIDE 22 mmol/L (21-32); CHLORIDE 105 mmol/L (101-111); CREATININE 0.8 mg/dL (0.5-1.5); POTASSIUM 3.4 mmol/L (3.5-5.1); SODIUM SERUM 137 mmol/L (136-145); UREA NITROGEN, BLOOD 12 mg/dL (7-18)
[2019-09-26] MEDS: MORPHINE SULFATE 2 MG/ML 1ML SYG IVP PRN (05:38)
[2019-09-26 05:41] LABS: GLUCOSE,RANDOM 129 mg/dL (70-105)
[2019-09-26 06:15] VITALS: BP 139/50
[2019-09-26] MEDS: DONEPEZIL HCL PEG SCH (07:16)
[2019-09-26] MEDS: MEMANTINE HCL PEG SCH (07:16)
[2019-09-26 07:37] VITALS: BP 134/46
[2019-09-26] MEDS: ASPIRIN 81 MG EC TAB PEG SCH (08:50)
[2019-09-26] MEDS: METFORMIN HCL 500 MG TABLET PEG SCH (08:50)
[2019-09-26] MEDS: LISINOPRIL 5 MG TABLET PEG SCH (08:50)
[2019-09-26] MEDS: POTASSIUM CHLORIDE 10% ELIXIR 20 MEQ/15 ML UDCUP PEG SCH (08:50)
[2019-09-26] MEDS: SERTRALINE HCL 50 MG TABLET PEG SCH (08:50)
[2019-09-26] MEDS: FAMOTIDINE/PF 20 MG/2 ML VIAL IV SCH (08:51)
--- NOTE | 2019-09-26 10:30 | NUR ---
DISCHARGED CALLED DAUGHTER, FABY DORADO W D/C INSTRUCTIONS GIVEN AND EXPLAINED UTILIZING TEACH BACK METHOD, FABY VERBALIZED UNDERSTANDING. CALLED REPORT AND SPOKE TO SAIMA SAID PATIENT NOT ON LIST (APPROVED) FOR [facility]RIA RESIDENT. NOTIFIED AISSATOU. WILL CONTINUE TO FOLLOW.
[2019-09-26 10:38] VITALS: BP 135/55
--- NOTE | 2019-09-26 10:56 | NUR ---
REPORT GIVEN TO SABI LANDAVERDE VERBALIZED UNDERSTANDING. EMS CALLED. Addendum: 09/26/19 at 1058 by ROLY DAWSON RN EMS CALLED. VERNON CONWAY.
--- NOTE | 2019-09-26 13:00 | NUR ---
ALL INFORMATION FAXED TO [facility] INCLUDING COVID SCREENING FORM FOR THIS ADMISSION, MED REC. [facility] CALL TO [facility] Addendum: 09/26/19 at 1419 by AISSATOU GIRON RN CM Amended: Links added.
== END 2019-09-26 12:30 | DRG 326 ==
LOC: EDH 14:34 → EDHIP 14:35 → 3AH 18:37
PROVIDERS: ADMIT Internal Medicine; ATTEND Internal Medicine
PROC: 0DJ08ZZ Inspection of Upper Intestinal Tract, Via Natural or Artificial Opening Endoscopic (ICD-10-PCS; 2019-09-25)
PROC: 0DH60UZ Insertion of Feeding Device into Stomach, Open Approach (ICD-10-PCS; principal; 2019-09-25 12:30)
DX: K94.29 Other complications of gastrostomy (principal); R53.2 Functional quadriplegia; I69.354 Hemiplegia and hemiparesis following cerebral infarction affecting left non-dominant side; F03.90 Unspecified dementia, unspecified severity, without behavioral disturbance, psychotic disturbance, mood disturbance, and anxiety; E11.9 Type 2 diabetes mellitus without complications; F32.9 Major depressive disorder, single episode, unspecified; E78.5 Hyperlipidemia, unspecified; I10 Essential (primary) hypertension; Y83.3 Surgical operation with formation of external stoma as the cause of abnormal reaction of the patient, or of later complication, without mention of misadventure at the time of the procedure; Y92.89 Other specified places as the place of occurrence of the external cause; Z74.01 Bed confinement status
CPT/HCPCS: 36415; 43235; 80048; 80053; 82948; 83735; 84100; 85025; 85610; 85730; G0378; J0360; J0690; J1100; J2405; J2704; J2710; J3010; J3490; J7030; J7070; J7120

== ENCOUNTER → 2019-10-23 | Outpatient (CLI) | payer MEDICARE, OTHER ==
[~2019-10-23] MED LIST changes: +ACET650O3 PEG; +ASPI-556 PEG; +DONE10TA43 PO; +FAMO20TA8 PO; +LACT10SO9 PEG; +MEMA10TA11 PO; +PANT40SU PEG; +POTA10TA11 PEG; +SERT100T PO
== END | disposition home or self-care (01) ==
LOC: WHH 13:30
PROVIDERS: ATTEND Specialist
DX: T81.32XA Disruption of internal operation (surgical) wound, not elsewhere classified, initial encounter (principal); E11.9 Type 2 diabetes mellitus without complications; I10 Essential (primary) hypertension; E78.5 Hyperlipidemia, unspecified; F03.90 Unspecified dementia, unspecified severity, without behavioral disturbance, psychotic disturbance, mood disturbance, and anxiety; F32.9 Major depressive disorder, single episode, unspecified; Z86.73 Personal history of transient ischemic attack (TIA), and cerebral infarction without residual deficits; Z87.891 Personal history of nicotine dependence; Y83.8 Other surgical procedures as the cause of abnormal reaction of the patient, or of later complication, without mention of misadventure at the time of the procedure; Y92.238 Other place in hospital as the place of occurrence of the external cause
CPT/HCPCS: 87070; A4450; G0463

== ENCOUNTER 2019-11-06 13:30 | Outpatient (CLI) | payer MEDICARE ==
[~2019-11-06 13:30] MED LIST changes: -DONE10TA43 PO; -FAMO20TA8 PO; -MEMA10TA11 PO; -SERT100T PO
== END 2019-11-06 14:18 | disposition home or self-care (01) ==
LOC: WHH 13:30
PROVIDERS: ATTEND Specialist
DX: T81.32XD Disruption of internal operation (surgical) wound, not elsewhere classified, subsequent encounter (principal); E11.9 Type 2 diabetes mellitus without complications; I10 Essential (primary) hypertension; R13.12 Dysphagia, oropharyngeal phase; E78.5 Hyperlipidemia, unspecified; F03.90 Unspecified dementia, unspecified severity, without behavioral disturbance, psychotic disturbance, mood disturbance, and anxiety; F33.9 Major depressive disorder, recurrent, unspecified; Z86.73 Personal history of transient ischemic attack (TIA), and cerebral infarction without residual deficits; Z93.1 Gastrostomy status; Z87.891 Personal history of nicotine dependence; Y83.8 Other surgical procedures as the cause of abnormal reaction of the patient, or of later complication, without mention of misadventure at the time of the procedure
CPT/HCPCS: G0463

== ENCOUNTER 2019-11-15 15:28 | Inpatient (IN) | payer MEDICARE ==
[2019-11-15 15:52] LABS: BASOPHILS % (AUTO) 0.2 % (0.0-5.0); EOSINOPHILS % (AUTO) 0.9 % (0.0-8.0); HEMATOCRIT 36.1 % (36-48); LYMPHOCYTES % (AUTO) 13.7 % (21.0-51.0); MEAN CORPUSCULAR HEMOGLOBIN 32.2 pg (27.0-33.0); MEAN CORPUSCULAR HGB CONC 34.3 g/dL (32.0-36.0); MEAN CORPUSCULAR VOLUME 93.8 fL (79-99); MONOCYTES % (AUTO) 6.1 % (3.0-13.0); PLATELET COUNT (AUTO) 211 K/uL (130-400); RED BLOOD CELL COUNT(AUTO) 3.85 MIL/uL (4.00-5.50); RED CELL DISTRIBUTION WIDTH 13.8 % (11.0-15.5); WHITE BLOOD COUNT (AUTO) 8.6 K/uL (4.8-10.8)
[2019-11-15 16:05] LABS: INR 1.19 (0.85-1.15); PROTHROMBIN TIME 12.8 SEC (9.6-11.6)
[2019-11-15 16:08] LABS: ALBUMIN 3.2 g/dL (3.5-5.0); BILIRUBIN,TOTAL 0.5 mg/dL (0.2-1.0); CREATININE 0.6 mg/dL (0.5-1.5); TOTAL PROTEIN, SERUM 6.8 g/dL (6.0-8.3)
[2019-11-15 16:15] LABS: POTASSIUM 2.6 mmol/L (3.5-5.1)
[2019-11-15 16:20] LABS: APPEARANCE,URINE SL CLOUDY (CLEAR); BILIRUBIN,URINE SMALL (NEGATIVE); COLOR,URINE YELLOW (YELLOW); GLUCOSE, URINE (UA) NEGATIVE (NEGATIVE); KETONES,URINE 15 mg/dL (NEGATIVE); LEUKOCYTE ESTERASE ,URINE NEGATIVE (NEGATIVE); NITRATE,URINE NEGATIVE (NEGATIVE); OCCULT BLOOD,URINE MODERATE (NEGATIVE); PROTEIN,URINE 30 mg/dL (NEGATIVE)
[2019-11-15 16:37] LABS: WBC,URINE 0-1 /HPF (0-1)
[2019-11-15 16:38] LABS: BACTERIA,URINE Rare /HPF (None Seen); MUCUS,URINE Few LPF (None Seen); SQUAMOUS EPITHELIAL CELL,UR Few /HPF (0-2)
[2019-11-15] MEDS: SODIUM CHLORIDE IV SCH ×2 (18:38)
[2019-11-15] MEDS ORDERED: ZOLPIDEM TARTRATE 5 MG TAB PO PRN (18:45)
[2019-11-15] MEDS ORDERED: ONDANSETRON HCL 4 MG/2 ML VIAL IV PRN (18:45)
[2019-11-15] MEDS ORDERED: MORPHINE SULFATE 4 MG/1ML SYG IV PRN (18:45)
[2019-11-15] MEDS ORDERED: MAG HYDROX/AL HYDROX/SIMETH ES 30 ML SUSP UDCUP PO PRN (18:45)
[2019-11-15] MEDS ORDERED: LACTULOSE 20 GM/30 ML UDCUP PO PRN (18:45)
[2019-11-15] MEDS ORDERED: GUAIFENESIN-DM 200/20 MG 10 ML PO PRN (18:45)
[2019-11-15] MEDS ORDERED: DiphenhydrAMINE HCL 50 MG/ML VIAL IV PRN (18:45)
[2019-11-15] MEDS ORDERED: ACETAMINOPHEN 325 MG TAB PO PRN ×2 (18:45)
[2019-11-15] MEDS: INSULIN LISPRO 100 UNIT/ML 3ML SQ SCH (21:00)
[2019-11-15] MEDS: BENZONATATE 100 MG CAPSULE PO SCH (21:00)
[2019-11-15] MEDS ORDERED: POTASSIUM CHLORIDE 20MEQ/100ML 200 ML IV ONE (22:21)
[2019-11-16] MEDS ORDERED: LIDOCAINE HCL-MPF 1% 2ML VIAL IJ PRN (00:30)
[2019-11-16] MEDS ORDERED: POTASSIUM CHLORIDE 20 MEQ ERTAB PO PRN (00:30)
[2019-11-16] MEDS ORDERED: POTASSIUM CHLORIDE 10% ELIXIR 20 MEQ/15 ML UDCUP PO PRN (00:30)
--- NOTE | 2019-11-16 01:45 | NUR ---
admission note admitted to room 427 via bed from er. patient awake, left sided paralysis, garbled speech, left hand with ivf infusing well, waffle mattress placed, no family at bedside, no teaching done hx dementia Addendum: 11/17/19 at 1800 by ERA LENTZ RN RN attempted call daughter 'Shira' for verbal consent, no answer left message on voicemail to call hospital for verbal consent of procedure.
[2019-11-16] MEDS ORDERED: FAMO20TA8 PO (02:34)
[2019-11-16] MEDS ORDERED: SERT100T PO (02:34)
[2019-11-16] MEDS ORDERED: DONE10TA43 PO (02:34)
[2019-11-16] MEDS ORDERED: MEMA10TA11 PO (02:34)
[2019-11-16 02:49] VITALS: BP 149/89
[2019-11-16] MEDS: INSULIN LISPRO 100 UNIT/ML 3ML SQ SCH ×4 (05:57→21:00)
[2019-11-16] MEDS ORDERED: GLUCAGON 1MG KIT 1 MG ML IM PRN (06:00)
[2019-11-16] MEDS ORDERED: DEXTROSE 50%-WATER 50 ML DISP.SYRIN IV PRN (06:00)
[2019-11-16 06:33] VITALS: BP 143/52
[2019-11-16 06:52] LABS: BASOPHILS % (AUTO) 0.4 % (0.0-5.0); LYMPHOCYTES % (AUTO) 21.1 % (21.0-51.0); MEAN CORPUSCULAR HEMOGLOBIN 32.5 pg (27.0-33.0); MEAN CORPUSCULAR HGB CONC 33.9 g/dL (32.0-36.0); MEAN CORPUSCULAR VOLUME 95.7 fL (79-99); MONOCYTES % (AUTO) 9.9 % (3.0-13.0); NEUTROPHILS % (AUTO) 66.4 % (40.0-77.0); PLATELET COUNT (AUTO) 154 K/uL (130-400); RED BLOOD CELL COUNT(AUTO) 3.45 MIL/uL (4.00-5.50); RED CELL DISTRIBUTION WIDTH 13.8 % (11.0-15.5); WHITE BLOOD COUNT (AUTO) 5.6 K/uL (4.8-10.8)
[2019-11-16 07:30] LABS: ALBUMIN 2.7 g/dL (3.5-5.0); BILIRUBIN,TOTAL 0.4 mg/dL (0.2-1.0); CREATININE 0.6 mg/dL (0.5-1.5); MAGNESIUM 1.3 mg/dL (1.80-2.40); PHOSPHORUS 2.7 mg/dL (2.5-4.9); TOTAL PROTEIN, SERUM 5.7 g/dL (6.0-8.3)
[2019-11-16 07:47] LABS: POTASSIUM 2.9 mmol/L (3.5-5.1)
[2019-11-16 08:34] VITALS: BP 136/43
[2019-11-16] MEDS: BENZONATATE 100 MG CAPSULE PO SCH (09:00)
[2019-11-16] MEDS: POTASSIUM CHLORIDE 20MEQ/100ML 100 ML IV PRN ×2 (10:01→17:34)
[2019-11-16] MEDS: FAMOTIDINE/PF 20 MG/2 ML VIAL IV SCH (10:01)
[2019-11-16] MEDS: DEXTROSE 5%-WATER 1,000 ML IV SCH (11:00)
[2019-11-16 11:32] VITALS: BP 130/70
[2019-11-16] MEDS: SODIUM CHLORIDE IV SCH ×2 (14:38)
--- NOTE | 2019-11-16 15:20 | NUR ---
DYSPHAGIA EVAL COMPLETED +S/S OF ASPIRATION. RECOMMEND EXHIBIT BUILDER ALTERNATE MEANS OF NUTRITION/HYDRATION. SUPERVISOR CELL OPERATION EDUCATED PATIENT OF RISKS AND CONSEQUENCES OF ASPIRATION. Pt UNABLE TO VERBALIZE UNDERSTANDING. SUPERVISOR CELL OPERATION COORDINATED WITH NURSE ERA LENTZ ABOUT RESULTS AND RECOMMENDATIONS. Addendum: 11/16/[address] GOMEZ LOW Amended: Links added.
[2019-11-16 16:10] VITALS: BP 142/61
--- NOTE | 2019-11-16 16:26 | NUR ---
Pt resting throughout shift, room air, no acute distress observed, pt currently npo with IV fluids infusing as ordered. speech in to eval pt, called in on-call GI no answer left message. Daughter called for an updated, current status and plan given. will continue to monitor, Vitals signs within normal limits.
--- NOTE | 2019-11-16 17:10 | NUR ---
INITIAL SW spoke to patient's daughter, Shira Ku. Patient is a resident of [facility] in [place]. As per daughter, patient has been there for 2 months. Plan [facility] once [facility] is discharged from hospital. Consent obtained for [facility] to return back to [facility]. PCP is Dr. Grant Soto. DCP is [facility]. Addendum: 11/16/19 at 1712 by JACQUIE HARRIS SS Amended: Links added.
--- NOTE | 2019-11-16 19:35 | NUR ---
PM Assessment Received pt awake, calm, tried to talk, noted slurred speech with HX: dementia. Per report Dr. Saenz was consulted pending notification as no response when page for plan PEG placement as old PEG was pulled out from the [facility]. Noted speech did an eval, recommendation is for PEG placement. Currently pt kept NPO, D5W at 75cc/hr infusing well. IV access wrapped with kerlix, unwrapped for assessment, site good with blood return & re-wrapped.
[2019-11-16 20:51] VITALS: BP 97/62
[2019-11-17 00:31] VITALS: BP 84/45
[2019-11-17] MEDS: DEXTROSE 5%-WATER 1,000 ML IV SCH ×2 (00:53→13:40)
[2019-11-17] MEDS: POTASSIUM CHLORIDE 20MEQ/100ML 100 ML IV PRN ×3 (01:11→16:01)
[2019-11-17] MEDS: INSULIN LISPRO 100 UNIT/ML 3ML SQ SCH ×3 (06:00→17:54)
[2019-11-17 06:19] VITALS: BP 134/62
[2019-11-17 06:26] LABS: BASOPHILS % (AUTO) 0.1 % (0.0-5.0); EOSINOPHILS % (AUTO) 1.8 % (0.0-8.0); HEMATOCRIT 33.3 % (36-48); LYMPHOCYTES % (AUTO) 15.8 % (21.0-51.0); MEAN CORPUSCULAR HEMOGLOBIN 32.9 pg (27.0-33.0); MEAN CORPUSCULAR HGB CONC 34.5 g/dL (32.0-36.0); MEAN CORPUSCULAR VOLUME 95.1 fL (79-99); MONOCYTES % (AUTO) 7.6 % (3.0-13.0); NEUTROPHILS % (AUTO) 74.6 % (40.0-77.0); PLATELET COUNT (AUTO) 181 K/uL (130-400); WHITE BLOOD COUNT (AUTO) 7.1 K/uL (4.8-10.8)
[2019-11-17 08:16] VITALS: BP 136/70
[2019-11-17 08:44] LABS: BILIRUBIN,TOTAL 0.5 mg/dL (0.2-1.0); CREATININE 0.7 mg/dL (0.5-1.5); MAGNESIUM 1.4 mg/dL (1.80-2.40); PHOSPHORUS 2.5 mg/dL (2.5-4.9); TOTAL PROTEIN, SERUM 6.5 g/dL (6.0-8.3)
[2019-11-17] MEDS: FAMOTIDINE/PF 20 MG/2 ML VIAL IV SCH (08:57)
[2019-11-17 09:09] LABS: POTASSIUM 2.9 mmol/L (3.5-5.1)
--- NOTE | 2019-11-17 12:00 | NUR ---
assessment done, pt resting no acute distress noted. upon administering meds IV noted to be leaking, placed new IV for dextrose infusion and potassium replacement per protocol. SCDs on BLE for VTE prophylaxis. Addendum: 11/17/19 at 1208 by ERA LENTZ RN RN placed new IV 24 gauge in right wrist with assist of staff. Addendum: 11/17/19 at 1724 by ERA LENTZ RN RN spoke with GI physician Dr. Tamayo plan to place PEG tube tomorrow 11/18/2019 also made aware that pt covid pcr is in still in process.
[2019-11-17 12:09] VITALS: BP 146/82
[2019-11-17 15:56] VITALS: BP 110/82
--- NOTE | 2019-11-17 20:28 | NUR ---
NEGATIVE COVID RESULTS DR. PERALTA WAS NOTIFIED OF PATIENT'S NEGATIVE COVID PCR RESULTS. PER MD, OKAY TO TRANSFER PATIENT TO NON-COVID UNIT
[2019-11-17 21:24] VITALS: BP 84/55
[2019-11-17] MEDS ORDERED: MAGNESIUM 2GM PREMIX 50ML 50 ML IV PRN (22:45)
[2019-11-17 23:46] LABS: MAGNESIUM 1.3 mg/dL (1.80-2.40); POTASSIUM 3.6 mmol/L (3.5-5.1)
[2019-11-18] VITALS (14 sets, daily range): BP systolic 90–147; BP diastolic 25–79
[2019-11-18] MEDS ORDERED: KCL IV ONE (00:44)
[2019-11-18] MEDS ORDERED: D5 NS IV ONE (00:44)
[2019-11-18] MEDS: INSULIN LISPRO 100 UNIT/ML 3ML SQ SCH ×4 (05:21→18:00)
[2019-11-18 06:01] LABS: BASOPHILS % (AUTO) 0.4 % (0.0-5.0); EOSINOPHILS % (AUTO) 3.2 % (0.0-8.0); HEMATOCRIT 32.6 % (36-48); LYMPHOCYTES % (AUTO) 22.8 % (21.0-51.0); MEAN CORPUSCULAR HEMOGLOBIN 32.7 pg (27.0-33.0); MEAN CORPUSCULAR HGB CONC 34.4 g/dL (32.0-36.0); MEAN CORPUSCULAR VOLUME 95.3 fL (79-99); MONOCYTES % (AUTO) 10.4 % (3.0-13.0); PLATELET COUNT (AUTO) 164 K/uL (130-400); RED BLOOD CELL COUNT(AUTO) 3.42 MIL/uL (4.00-5.50); RED CELL DISTRIBUTION WIDTH 14.2 % (11.0-15.5); WHITE BLOOD COUNT (AUTO) 5.6 K/uL (4.8-10.8)
[2019-11-18 06:27] LABS: ALBUMIN 2.7 g/dL (3.5-5.0); BILIRUBIN,TOTAL 0.4 mg/dL (0.2-1.0); CREATININE 0.6 mg/dL (0.5-1.5); MAGNESIUM 1.9 mg/dL (1.80-2.40); PHOSPHORUS 3.4 mg/dL (2.5-4.9); POTASSIUM 3.9 mmol/L (3.5-5.1); TOTAL PROTEIN, SERUM 6.1 g/dL (6.0-8.3)
[2019-11-18] MEDS ORDERED: LIDOCAINE HCL 1% 20 ML VIAL ONE (07:03)
[2019-11-18] MEDS ORDERED: PROPOFOL 10 MG/ML 20ML VIAL IV ONE (07:03)
[2019-11-18] MEDS ORDERED: CEFAZOLIN SODIUM 1 GM VIAL ONE (07:07)
--- NOTE | 2019-11-18 08:17 | NUR ---
pt returned from GI lab from peg placement procedure in stable condition. pt arousable and at baseline assessment. Sp02 95% room air, no acute distress noted. PEg site assessed and dressed with post op dressing, will obtain abdominal binder to maintain site and tube. Per report Peg tube can be used for medications and feeding. Addendum: 11/18/19 at 1813 by ERA LENTZ RN RN 1200 left message for it service technician for recommended feedings. 1500 spoke with it service technician fanog over order for feedings.
[2019-11-18] MEDS ORDERED: D5 NS WITH 20 mEq KCl 1000ML IV SCH (09:00)
[2019-11-18] MEDS: FAMOTIDINE/PF 20 MG/2 ML VIAL IV SCH (09:16)
[2019-11-18] MEDS: PHARMACY COMMUNICATION MISC SCH ×4 (12:30→18:16)
--- NOTE | 2019-11-18 13:32 | NUR ---
RD NOTIFICATION - Tube Feeding Pt admitted with dislodged PEG Tube. Tube Feeding eval requested. Recommend Continuous Glucerna 1.5 initiated at 15mls/hr. Goal rate of 35mls/hr. Flushes 100mLs Q4hrs. Recommendations faxed to [facility], RN Notified. NUTRITION NOTE Pt height obtained from previous admission. NPO >3 days. PEG dislodged 3 days prior to admit. RD to continue to monitor.
--- NOTE | 2019-11-18 16:45 | NUR ---
REPEATING COVID TEST PER [facility] REQUEST PER [facility] ADMISSION COORDINATOR, PATIENT'S COVID RESULT NEEDS TO BE REPEATED. TEST WILL BE GREATER THAN 72 HRS WHEN RETURNS TO FACILITY. ORDER PLACED AND RN AWARE
[2019-11-19] VITALS (7 sets, daily range): BP systolic 123–153; BP diastolic 44–90
[2019-11-19] MEDS: INSULIN LISPRO 100 UNIT/ML 3ML SQ SCH ×4 (06:00→18:00)
--- NOTE | 2019-11-19 08:00 | NUR ---
PT RESTING IN BED , BED BOUND PT. DUE TO HER HX OF CVA, , PT . HAD A PEG INSERTION ON [address] NELSON PT HAS GLUCERNA 1.5. WEST. GOING AT 20 CC / HR , UP TO 25 CC HR , WITH A MAX , GOAL OF 35 CCHR . HAS WATER FLUSH OF 100 CC Q 4 HRS , ER RECOMMANDATION . PT . HAS A ABD BINDER TO PROTECT , THE SITE, DUE TO PT. HX OF PULLING THE PEG BEFORE, PT IN NONVERBAL ORIENTATION TO HER SURROUNDING DONE, ORAL AND TURNING CARE. DONE,
[2019-11-19] MEDS: FAMOTIDINE/PF 20 MG/2 ML VIAL IV SCH (09:25)
--- NOTE | 2019-11-19 12:28 | NUR ---
COVID TEST SENT TO [facility]. NO BARRIERS TO DISCHARGE ARRANGING EMS REQUESTED BY RN- STATES PATIENT RESTLESS SLIGHTLY CONFUSED. , MAY NOT SIT SAFELY IN A WHEELCHAIR VAN
--- NOTE | 2019-11-19 16:00 | NUR ---
UP TUBE FEEDING VIA PEG .TO 30 CC HR, MAX OF 35 CC HR. HOB UP. RESIDUALS NONE, TOLERATE WELL .
[2019-11-20 03:47] VITALS: BP 117/69
[2019-11-20] MEDS: INSULIN LISPRO 100 UNIT/ML 3ML SQ SCH ×3 (06:00→11:54)
[2019-11-20 07:30] VITALS: BP 150/57
--- NOTE | 2019-11-20 08:00 | NUR ---
PT , WITH HER EYES OPEN, REVIEW ORIENTATION TO HER CARE, HX OF DEMENTIA. . HOB UP. CHECK , PEG PLACEMENT . SITE TO HER LEFT SIDE, DRSG CHANGED .CLEANSE WITH THE SALINE, AND CLEAN GAUZE SECURE . AND TAPED SECURED IN PLACE, ABD BINDER ON . . PT HAS TUBE PEG FEEDING OF GLUCERNA 1.5 WEST AT 325 CC HR. . NO RESIDUAL , . ABDSOFT ACTIVE BOWEL SOUNDS. BED ALARM ON .. CLOSE TO NURSE . STATION ,
[2019-11-20] MEDS: FAMOTIDINE/PF 20 MG/2 ML VIAL IV SCH (08:26)
--- NOTE | 2019-11-20 10:50 | NUR ---
REPORT CALLED TO [facility] SPOKE WITH CHARGE NURSE, ADMINISTRAR RONNI YOO RN. . REVIEW. CONT CARE AND FOLLOWUP WITH THE PEG PLACEMENT . AND CARE.
[2019-11-20 11:00] VITALS: BP 147/76
--- NOTE | 2019-11-20 11:30 | NUR ---
PEG . WATER FLUSH OF 100 CC AND DC THE PEGTUBE FEEDING PENDING DISCHARGE TO [facility]. SL TO HER LEFT WRIST ,DC NOTED NO REDNESS A SM DRSG APPLICATION ON. ABD ON TO PROTECT THE PEG SITE, . . HOB UP.
--- NOTE | 2019-11-20 11:55 | NUR ---
DISCHARGE TO [facility]. . VIA EMS . REVIEW . HX . . . MASK ON.
--- NOTE | 2019-11-20 14:00 | NUR ---
DISCHARGE BACK TO [facility] VIA SARY Addendum: 11/21/19 at 0908 by AISSATOU GIRON RN CM Amended: Links added.
== END 2019-11-20 11:45 | DRG 394 ==
LOC: EDH 15:28 → EDHIP 18:38 → 4DH 11-16 01:35
PROVIDERS: ADMIT Hospitalist; ATTEND Hospitalist
PROC: 0DH63UZ Insertion of Feeding Device into Stomach, Percutaneous Approach (ICD-10-PCS; principal; 2019-11-18)
DX: K94.23 Gastrostomy malfunction (principal); I69.354 Hemiplegia and hemiparesis following cerebral infarction affecting left non-dominant side; E46 Unspecified protein-calorie malnutrition; K59.00 Constipation, unspecified; R62.7 Adult failure to thrive; F32.9 Major depressive disorder, single episode, unspecified; E11.9 Type 2 diabetes mellitus without complications; E78.5 Hyperlipidemia, unspecified; E86.0 Dehydration; R13.12 Dysphagia, oropharyngeal phase; F03.90 Unspecified dementia, unspecified severity, without behavioral disturbance, psychotic disturbance, mood disturbance, and anxiety; I10 Essential (primary) hypertension; Z20.828 Contact with and (suspected) exposure to other viral communicable diseases; Z66 Do not resuscitate; E87.6 Hypokalemia; Y83.8 Other surgical procedures as the cause of abnormal reaction of the patient, or of later complication, without mention of misadventure at the time of the procedure; Y92.89 Other specified places as the place of occurrence of the external cause
CPT/HCPCS: 36415; 43246; 71045; 80053; 81001; 82948; 83735; 84100; 84132; 84484; 85025; 85610; 85730; 87426; 92610; 93005; A4606; G0378; J0690; J2704; J3475; J3480; J3490; J7030; U0003

== ENCOUNTER 2020-12-13 14:59 | Inpatient (IN) | payer MEDICARE ==
[~2020-12-13] VITALS: Ht 152.4 cm; Wt 48.2 kg
[~2020-12-13 14:59] MED LIST changes: +DONE10TA43 PO; +FAMO20TA8 PO; -LISI-617 PEG; +LISI-809 PEG; +MEMA10TA11 PO; +SERT-440 PEG; +SERT100T GT; -SERT100T12 PEG
[2020-12-13 15:20] VITALS: BP 93/21
[2020-12-13] MEDS ORDERED: 0.9%NACL 1000ML 1,000 ML IV ONE (16:00)
[2020-12-13] MEDS ORDERED: ZOSYN 3.375GM +NS 50ML IV SCH (16:00)
[2020-12-13] MEDS ORDERED: ZOSYN 3.375GM+NS 50ML 3.38 GM in 0.9%NACL 50ML 50 ML IV SCH (16:00)
[2020-12-13] MEDS ORDERED: 0.9%NACL 50ML 50 ML IV SCH (16:00)
[2020-12-13 16:13] LABS: BASOPHILS % (AUTO) 0.2 % (0.0-5.0); EOSINOPHILS % (AUTO) 0.4 % (0.0-8.0); HEMATOCRIT 27.1 % (36-48); LYMPHOCYTES % (AUTO) 7.8 % (21.0-51.0); MEAN CORPUSCULAR HEMOGLOBIN 31.3 pg (27.0-33.0); MEAN CORPUSCULAR HGB CONC 33.2 g/dL (32.0-36.0); MEAN CORPUSCULAR VOLUME 94.1 fL (79-99); MONOCYTES % (AUTO) 8.3 % (3.0-13.0); PLATELET COUNT (AUTO) 183 K/uL (130-400); RED BLOOD CELL COUNT(AUTO) 2.88 MIL/uL (4.00-5.50); RED CELL DISTRIBUTION WIDTH 14.4 % (11.0-15.5); WHITE BLOOD COUNT (AUTO) 11.7 K/uL (4.8-10.8)
[2020-12-13 16:16] LABS: BILIRUBIN,URINE Small (NEGATIVE); COLOR,URINE Dark Yellow (YELLOW); GLUCOSE, URINE (UA) Negative (NEGATIVE); KETONES,URINE Trace mg/dL (NEGATIVE); LEUKOCYTE ESTERASE ,URINE Large (NEGATIVE); NITRATE,URINE Negative (NEGATIVE); OCCULT BLOOD,URINE Small (NEGATIVE); PH,URINE 5.5 (5.0-8.0); PROTEIN,URINE POS 1+ mg/dL (NEGATIVE)
[2020-12-13 16:17] LABS: APPEARANCE,URINE CLOUDY (CLEAR)
[2020-12-13 16:23] VITALS: BP 96/30
[2020-12-13 16:24] LABS: BACTERIA,URINE Moderate /HPF (None Seen); WBC,URINE >100 /HPF (0-1)
[2020-12-13 16:25] LABS: SQUAMOUS EPITHELIAL CELL,UR Few /HPF (0-2); TRANSITIONAL EPI CELLS,URINE Few /HPF (None Seen)
[2020-12-13 16:25] LABS: INR 1.07 (0.85-1.15); PROTHROMBIN TIME 11.6 SEC (9.6-11.6)
[2020-12-13 16:27] LABS: PARTIAL THROMBOPLASTIN TIME 26.8 SEC (26.3-35.5)
[2020-12-13 16:29] LABS: B-TYPE NATRIURETIC PEPTIDE 170 pg/mL (0-100)
[2020-12-13 16:52] LABS: CREATININE 1.4 mg/dL (0.5-1.5); POTASSIUM 5.2 mmol/L (3.5-5.1)
[2020-12-13 16:54] LABS: ALBUMIN 2.5 g/dL (3.5-5.0); BILIRUBIN,TOTAL 0.2 mg/dL (0.2-1.0); TOTAL PROTEIN, SERUM 6.1 g/dL (6.0-8.3)
[2020-12-13 18:07] VITALS: BP 113/31
[2020-12-13 19:20] VITALS: BP 115/45
[2020-12-13 21:26] VITALS: BP 118/45
[2020-12-13] MEDS ORDERED: ACETAMINOPHEN 325 MG TAB PO PRN (23:30)
[2020-12-13] MEDS ORDERED: 0.9%NACL 1000ML 1,000 ML IV SCH (23:30)
[2020-12-14] VITALS (11 sets, daily range): BP systolic 106–161; BP diastolic 41–64
[2020-12-14] MEDS ORDERED: KAYEXALATE 15GM/60ML PEG SCH
[2020-12-14] MEDS ORDERED: 0.9%NACL 50ML 50 ML IV ONE ×2 (04:57→13:49)
[2020-12-14] MEDS: ZOSYN 3.375GM+NS 50ML 50 ML IV SCH ×3 (05:26→20:35)
[2020-12-14 06:30] LABS: BASOPHILS % (AUTO) 0.2 % (0.0-5.0); EOSINOPHILS % (AUTO) 8.6 % (0.0-8.0); HEMATOCRIT 27.1 % (36-48); LYMPHOCYTES % (AUTO) 13.7 % (21.0-51.0); MEAN CORPUSCULAR HEMOGLOBIN 31.5 pg (27.0-33.0); MEAN CORPUSCULAR HGB CONC 32.5 g/dL (32.0-36.0); MEAN CORPUSCULAR VOLUME 97.1 fL (79-99); MONOCYTES % (AUTO) 9.6 % (3.0-13.0); NEUTROPHILS % (AUTO) 67.5 % (40.0-77.0); PLATELET COUNT (AUTO) 161 K/uL (130-400); RED BLOOD CELL COUNT(AUTO) 2.79 MIL/uL (4.00-5.50); RED CELL DISTRIBUTION WIDTH 14.6 % (11.0-15.5); WHITE BLOOD COUNT (AUTO) 9.2 K/uL (4.8-10.8)
[2020-12-14 06:41] LABS: MAGNESIUM 2.1 mg/dL (1.80-2.40); PHOSPHORUS 3.7 mg/dL (2.5-4.9)
[2020-12-14] MEDS: ENOXAPARIN SODIUM 30 MG/0.3 ML SQ SCH (08:39)
[2020-12-14] MEDS: FAMOTIDINE 20MG TAB PEG SCH (09:00)
[2020-12-14] MEDS ORDERED: DIATR MEGLU/DIATRIZOATE SODIUM 30 ML BOTTLE ONE (09:22)
[2020-12-14] MEDS: LACTATED RINGERS 1000ML 1,000 ML IV SCH (09:49)
[2020-12-14] MEDS ORDERED: FAMOTIDINE 20MG VIAL IV ONE (09:50)
[2020-12-14] MEDS: IPRATROPIUM/ALBUTEROL SULFATE 3 ML SOLUTION IH PRN ×3 (11:37→23:14)
[2020-12-15] VITALS (9 sets, daily range): BP systolic 109–164; BP diastolic 32–82
[2020-12-15] MEDS: LACTATED RINGERS 1000ML 1,000 ML IV SCH (00:24)
[2020-12-15] MEDS: ZOSYN 3.375GM+NS 50ML 50 ML IV SCH ×3 (05:30→21:20)
[2020-12-15] MEDS ORDERED: RISP1SOL10 PO (06:40)
[2020-12-15] MEDS ORDERED: ONDA4TAB4 PO (06:40)
[2020-12-15] MEDS: IPRATROPIUM/ALBUTEROL SULFATE 3 ML SOLUTION IH PRN ×4 (07:00→23:12)
[2020-12-15] MEDS ORDERED: LACTULOSE 20 GM/30 ML UDCUP PEG PRN (09:00)
[2020-12-15 09:15] LABS: BASOPHILS % (AUTO) 0.2 % (0.0-5.0); EOSINOPHILS % (AUTO) 2.5 % (0.0-8.0); HEMATOCRIT 29.5 % (36-48); MEAN CORPUSCULAR HEMOGLOBIN 30.8 pg (27.0-33.0); MEAN CORPUSCULAR HGB CONC 32.2 g/dL (32.0-36.0); MEAN CORPUSCULAR VOLUME 95.8 fL (79-99); MONOCYTES % (AUTO) 9.5 % (3.0-13.0); NEUTROPHILS % (AUTO) 77.5 % (40.0-77.0); PLATELET COUNT (AUTO) 173 K/uL (130-400); RED BLOOD CELL COUNT(AUTO) 3.08 MIL/uL (4.00-5.50); RED CELL DISTRIBUTION WIDTH 14.3 % (11.0-15.5); WHITE BLOOD COUNT (AUTO) 6.3 K/uL (4.8-10.8)
[2020-12-15 09:52] LABS: CREATININE 1.1 mg/dL (0.5-1.5); MAGNESIUM 1.9 mg/dL (1.80-2.40); POTASSIUM 4.3 mmol/L (3.5-5.1)
[2020-12-15] MEDS: LANSOPRAZOLE 15 MG SOLU TAB PEG SCH (11:03)
[2020-12-15] MEDS: FAMOTIDINE 20MG TAB PEG SCH (11:03)
[2020-12-15] MEDS: ASPIRIN 81 MG EC TAB PEG SCH (11:03)
[2020-12-15] MEDS: MEMANTINE HCL 5 MG TABLET PO SCH ×2 (11:03→21:20)
[2020-12-15] MEDS: ENOXAPARIN SODIUM 30 MG/0.3 ML SQ SCH (11:04)
[2020-12-15] MEDS: RISPERIDONE 1 MG TABLET PO SCH (14:52)
[2020-12-15] MEDS: DONEPEZIL HCL 5 MG TAB PO SCH (21:20)
[2020-12-15] MEDS: ATORVASTATIN 10 MG TABLET PEG SCH (21:21)
[2020-12-15] MEDS: SERTRALINE HCL 50 MG TABLET PO SCH (21:21)
[2020-12-16] VITALS (7 sets, daily range): BP systolic 112–166; BP diastolic 38–83
[2020-12-16] MEDS: ZOSYN 3.375GM+NS 50ML 50 ML IV SCH ×3 (05:10→22:10)
[2020-12-16] MEDS ORDERED: LISINOPRIL 5 MG TABLET ONE (05:11)
[2020-12-16] MEDS: LISINOPRIL 5 MG TABLET PEG SCH (05:12)
[2020-12-16 05:49] LABS: BASOPHILS % (AUTO) 0.3 % (0.0-5.0); EOSINOPHILS % (AUTO) 2.1 % (0.0-8.0); HEMATOCRIT 30.3 % (36-48); LYMPHOCYTES % (AUTO) 15.6 % (21.0-51.0); MEAN CORPUSCULAR HEMOGLOBIN 31.3 pg (27.0-33.0); MEAN CORPUSCULAR HGB CONC 32.7 g/dL (32.0-36.0); MEAN CORPUSCULAR VOLUME 95.9 fL (79-99); MONOCYTES % (AUTO) 8.7 % (3.0-13.0); PLATELET COUNT (AUTO) 194 K/uL (130-400); RED BLOOD CELL COUNT(AUTO) 3.16 MIL/uL (4.00-5.50); RED CELL DISTRIBUTION WIDTH 14.4 % (11.0-15.5); WHITE BLOOD COUNT (AUTO) 6.5 K/uL (4.8-10.8)
[2020-12-16] MEDS: IPRATROPIUM/ALBUTEROL SULFATE 3 ML SOLUTION IH PRN ×3 (06:20→18:50)
[2020-12-16 06:28] LABS: POTASSIUM 3.7 mmol/L (3.5-5.1)
[2020-12-16] MEDS: FAMOTIDINE 20MG TAB PEG SCH (08:29)
[2020-12-16] MEDS: LANSOPRAZOLE 15 MG SOLU TAB PEG SCH (08:29)
[2020-12-16] MEDS: MEMANTINE HCL 5 MG TABLET PO SCH ×2 (08:29→22:10)
[2020-12-16] MEDS: ASPIRIN 81 MG EC TAB PEG SCH (08:30)
[2020-12-16] MEDS: ENOXAPARIN SODIUM 30 MG/0.3 ML SQ SCH (08:34)
[2020-12-16] MEDS: RISPERIDONE 1 MG TABLET PO SCH (14:37)
[2020-12-16] MEDS: ATORVASTATIN 10 MG TABLET PEG SCH (22:10)
[2020-12-16] MEDS: DONEPEZIL HCL 5 MG TAB PO SCH (22:10)
[2020-12-16] MEDS: SERTRALINE HCL 50 MG TABLET PO SCH (22:10)
[2020-12-17 03:53] VITALS: BP 144/48
[2020-12-17] MEDS: ZOSYN 3.375GM+NS 50ML 50 ML IV SCH ×3 (05:38→20:34)
[2020-12-17 07:20] LABS: CREATININE 0.9 mg/dL (0.5-1.5); MAGNESIUM 1.8 mg/dL (1.80-2.40); POTASSIUM 3.4 mmol/L (3.5-5.1)
[2020-12-17 08:00] VITALS: BP 139/48
[2020-12-17] MEDS: LISINOPRIL 5 MG TABLET PEG SCH (11:12)
[2020-12-17] MEDS: ENOXAPARIN SODIUM 30 MG/0.3 ML SQ SCH (11:12)
[2020-12-17] MEDS: ASPIRIN 81 MG EC TAB PEG SCH (11:12)
[2020-12-17] MEDS: MEMANTINE HCL 5 MG TABLET PO SCH ×2 (11:13→20:35)
[2020-12-17] MEDS: LANSOPRAZOLE 15 MG SOLU TAB PEG SCH (11:13)
[2020-12-17] MEDS: FAMOTIDINE 20MG TAB PEG SCH (11:14)
[2020-12-17 11:57] VITALS: BP 146/47
[2020-12-17] MEDS: BALSAM PERU/CASTOR OIL 60 GM TUBE TP SCH ×2 (14:00→20:35)
[2020-12-17] MEDS ORDERED: VANCOMYCIN PROTOCOL PER PHARMACY IV SCH (14:30)
[2020-12-17] MEDS: VANCOMYCIN 750MG VIAL IVPB SCH (15:40)
[2020-12-17] MEDS: RISPERIDONE 1 MG TABLET PO SCH (15:41)
[2020-12-17] MEDS: 0.9% NACL 250ML 250 ML IV SCH (15:41)
[2020-12-17 16:00] VITALS: BP 153/64
[2020-12-17 19:15] LABS: INR 1.05 (0.85-1.15); PROTHROMBIN TIME 11.4 SEC (9.6-11.6)
[2020-12-17 19:16] LABS: PARTIAL THROMBOPLASTIN TIME 27.1 SEC (26.3-35.5)
[2020-12-17 20:00] VITALS: BP 154/60
[2020-12-17] MEDS: ATORVASTATIN 10 MG TABLET PEG SCH (20:34)
[2020-12-17] MEDS: DONEPEZIL HCL 5 MG TAB PO SCH (20:34)
[2020-12-17] MEDS: DOXYCYCLINE HYCLATE 100 MG TABLET PO SCH (20:35)
[2020-12-17] MEDS: SERTRALINE HCL 50 MG TABLET PO SCH (20:35)
[2020-12-17 23:55] VITALS: BP 123/58
[2020-12-18 03:57] VITALS: BP 133/50
[2020-12-18] MEDS: ZOSYN 3.375GM+NS 50ML 50 ML IV SCH ×3 (05:17→21:12)
[2020-12-18 05:45] LABS: BASOPHILS % (AUTO) 0.3 % (0.0-5.0); HEMATOCRIT 28.6 % (36-48); LYMPHOCYTES % (AUTO) 21.6 % (21.0-51.0); MEAN CORPUSCULAR HEMOGLOBIN 31.4 pg (27.0-33.0); MEAN CORPUSCULAR HGB CONC 31.8 g/dL (32.0-36.0); MEAN CORPUSCULAR VOLUME 98.6 fL (79-99); MONOCYTES % (AUTO) 7.3 % (3.0-13.0); NEUTROPHILS % (AUTO) 57.6 % (40.0-77.0); PLATELET COUNT (AUTO) 182 K/uL (130-400); RED CELL DISTRIBUTION WIDTH 14.5 % (11.0-15.5); WHITE BLOOD COUNT (AUTO) 6.5 K/uL (4.8-10.8)
[2020-12-18 06:05] LABS: CREATININE 0.9 mg/dL (0.5-1.5); POTASSIUM 3.3 mmol/L (3.5-5.1)
[2020-12-18 07:30] VITALS: BP 127/27
[2020-12-18] MEDS ORDERED: POTASSIUM CHLORIDE 10% ELIXIR 20 MEQ/15 ML UDCUP PEG SCH (09:00)
[2020-12-18] MEDS: DOXYCYCLINE HYCLATE 100 MG TABLET PO SCH ×2 (10:41→21:11)
[2020-12-18] MEDS: ENOXAPARIN SODIUM 30 MG/0.3 ML SQ SCH (10:42)
[2020-12-18] MEDS: LISINOPRIL 5 MG TABLET PEG SCH (10:42)
[2020-12-18] MEDS: ASPIRIN 81 MG EC TAB PEG SCH (10:42)
[2020-12-18] MEDS: FAMOTIDINE 20MG TAB PEG SCH (10:42)
[2020-12-18] MEDS: LANSOPRAZOLE 15 MG SOLU TAB PEG SCH (10:42)
[2020-12-18] MEDS: MEMANTINE HCL 5 MG TABLET PO SCH ×2 (10:42→21:10)
[2020-12-18] MEDS: BALSAM PERU/CASTOR OIL 60 GM TUBE TP SCH ×3 (10:43→21:12)
[2020-12-18] MEDS: RISPERIDONE 1 MG TABLET PO SCH (12:41)
[2020-12-18] MEDS: VANCOMYCIN 750MG VIAL IVPB SCH (15:24)
[2020-12-18] MEDS: 0.9% NACL 250ML 250 ML IV SCH (15:24)
[2020-12-18 16:00] VITALS: BP 132/33
[2020-12-18] MEDS: IPRATROPIUM/ALBUTEROL SULFATE 3 ML SOLUTION IH PRN (19:59)
[2020-12-18 20:33] VITALS: BP 122/56
[2020-12-18] MEDS: SERTRALINE HCL 50 MG TABLET PO SCH (21:10)
[2020-12-18] MEDS: ATORVASTATIN 10 MG TABLET PEG SCH (21:10)
[2020-12-18] MEDS: DONEPEZIL HCL 5 MG TAB PO SCH (21:10)
[2020-12-18 23:54] VITALS: BP 137/44
[2020-12-19] MEDS: IPRATROPIUM/ALBUTEROL SULFATE 3 ML SOLUTION IH PRN ×4 (00:13→20:12)
[2020-12-19 03:55] VITALS: BP 142/40
[2020-12-19] MEDS: ZOSYN 3.375GM+NS 50ML 50 ML IV SCH ×3 (04:26→21:37)
[2020-12-19 06:39] LABS: BASOPHILS % (AUTO) 0.4 % (0.0-5.0); EOSINOPHILS % (AUTO) 10.9 % (0.0-8.0); HEMATOCRIT 27.2 % (36-48); LYMPHOCYTES % (AUTO) 18.1 % (21.0-51.0); MEAN CORPUSCULAR HEMOGLOBIN 31.2 pg (27.0-33.0); MEAN CORPUSCULAR HGB CONC 32.4 g/dL (32.0-36.0); MEAN CORPUSCULAR VOLUME 96.5 fL (79-99); MONOCYTES % (AUTO) 7.6 % (3.0-13.0); NEUTROPHILS % (AUTO) 62.7 % (40.0-77.0); PLATELET COUNT (AUTO) 180 K/uL (130-400); RED BLOOD CELL COUNT(AUTO) 2.82 MIL/uL (4.00-5.50); RED CELL DISTRIBUTION WIDTH 14.6 % (11.0-15.5); WHITE BLOOD COUNT (AUTO) 7.1 K/uL (4.8-10.8)
[2020-12-19 06:50] LABS: POTASSIUM 3.5 mmol/L (3.5-5.1)
[2020-12-19 07:16] VITALS: BP 119/23
[2020-12-19] MEDS: LANSOPRAZOLE 15 MG SOLU TAB PEG SCH (09:00)
[2020-12-19] MEDS: LISINOPRIL 5 MG TABLET PEG SCH (09:00)
[2020-12-19] MEDS: DOXYCYCLINE HYCLATE 100 MG TABLET PO SCH ×2 (09:28→21:37)
[2020-12-19] MEDS: FAMOTIDINE 20MG TAB PEG SCH (09:28)
[2020-12-19] MEDS: MEMANTINE HCL 5 MG TABLET PO SCH ×2 (09:28→21:37)
[2020-12-19] MEDS: ASPIRIN 81 MG EC TAB PEG SCH (09:28)
[2020-12-19] MEDS: BALSAM PERU/CASTOR OIL 60 GM TUBE TP SCH ×3 (09:29→21:38)
[2020-12-19] MEDS: ENOXAPARIN SODIUM 30 MG/0.3 ML SQ SCH (09:29)
[2020-12-19] MEDS ORDERED: POTASSIUM CHLORIDE 10% ELIXIR 20 MEQ/15 ML UDCUP PEG SCH (10:30)
[2020-12-19 11:41] VITALS: BP 139/42
[2020-12-19] MEDS: RISPERIDONE 1 MG TABLET PO SCH (13:18)
[2020-12-19 17:25] VITALS: BP 149/44
[2020-12-19] MEDS: 0.9% NACL 250ML 250 ML IV SCH (18:08)
[2020-12-19] MEDS: VANCOMYCIN 750MG VIAL IVPB SCH (18:09)
[2020-12-19 19:57] VITALS: BP 128/53
[2020-12-19] MEDS: ATORVASTATIN 10 MG TABLET PEG SCH (21:37)
[2020-12-19] MEDS: SERTRALINE HCL 50 MG TABLET PO SCH (21:37)
[2020-12-19] MEDS: DONEPEZIL HCL 5 MG TAB PO SCH (21:37)
[2020-12-19 23:30] VITALS: BP 134/78
[2020-12-20] MEDS: IPRATROPIUM/ALBUTEROL SULFATE 3 ML SOLUTION IH PRN ×3 (00:31→11:52)
[2020-12-20 03:26] VITALS: BP 156/74
[2020-12-20] MEDS: ZOSYN 3.375GM+NS 50ML 50 ML IV SCH ×2 (04:02→12:12)
[2020-12-20 07:19] VITALS: BP 150/55
[2020-12-20] MEDS: LANSOPRAZOLE 15 MG SOLU TAB PEG SCH (09:13)
[2020-12-20] MEDS: MEMANTINE HCL 5 MG TABLET PO SCH (09:13)
[2020-12-20] MEDS: LISINOPRIL 5 MG TABLET PEG SCH (09:13)
[2020-12-20] MEDS: ASPIRIN 81 MG EC TAB PEG SCH (09:13)
[2020-12-20] MEDS: DOXYCYCLINE HYCLATE 100 MG TABLET PO SCH (09:13)
[2020-12-20] MEDS: BALSAM PERU/CASTOR OIL 60 GM TUBE TP SCH ×2 (09:14→15:25)
[2020-12-20] MEDS: ENOXAPARIN SODIUM 30 MG/0.3 ML SQ SCH (09:14)
[2020-12-20 10:00] LABS: BASOPHILS % (AUTO) 0.3 % (0.0-5.0); EOSINOPHILS % (AUTO) 7.5 % (0.0-8.0); HEMATOCRIT 27.2 % (36-48); LYMPHOCYTES % (AUTO) 16.6 % (21.0-51.0); MEAN CORPUSCULAR HEMOGLOBIN 31.2 pg (27.0-33.0); MEAN CORPUSCULAR HGB CONC 30.9 g/dL (32.0-36.0); MEAN CORPUSCULAR VOLUME 101.1 fL (79-99); MONOCYTES % (AUTO) 6.3 % (3.0-13.0); NEUTROPHILS % (AUTO) 68.5 % (40.0-77.0); NUCLEATED RED BLOOD CELLS 0.4 % (0.0-0.19); PLATELET COUNT (AUTO) 159 K/uL (130-400); RED BLOOD CELL COUNT(AUTO) 2.69 MIL/uL (4.00-5.50); RED CELL DISTRIBUTION WIDTH 14.8 % (11.0-15.5); WHITE BLOOD COUNT (AUTO) 7.8 K/uL (4.8-10.8)
[2020-12-20 10:09] LABS: CREATININE 0.9 mg/dL (0.5-1.5); POTASSIUM 3.4 mmol/L (3.5-5.1)
[2020-12-20] MEDS ORDERED: POTASSIUM CHLORIDE 10% ELIXIR 20 MEQ/15 ML UDCUP PEG SCH (11:00)
[2020-12-20 11:25] VITALS: BP 145/43
[2020-12-20] MEDS: RISPERIDONE 1 MG TABLET PO SCH (12:12)
[2020-12-20 15:25] VITALS: BP 118/42
[2020-12-20] MEDS: 0.9% NACL 250ML 250 ML IV SCH (15:25)
[2020-12-20] MEDS: VANCOMYCIN 750MG VIAL IVPB SCH (15:25)
== END 2020-12-20 18:35 | DRG 177 ==
LOC: EDH 14:59 → EDHIP 23:25 → 4DH 12-15 05:41
PROVIDERS: ADMIT Internal Medicine; ATTEND Internal Medicine
PROC: 05HY33Z Insertion of Infusion Device into Upper Vein, Percutaneous Approach (ICD-10-PCS; principal; 2020-12-18)
DX: J15.29 Pneumonia due to other staphylococcus (principal); J96.91 Respiratory failure, unspecified with hypoxia; N39.0 Urinary tract infection, site not specified; E44.0 Moderate protein-calorie malnutrition; I69.354 Hemiplegia and hemiparesis following cerebral infarction affecting left non-dominant side; J18.9 Pneumonia, unspecified organism; E11.9 Type 2 diabetes mellitus without complications; F03.90 Unspecified dementia, unspecified severity, without behavioral disturbance, psychotic disturbance, mood disturbance, and anxiety; F32.9 Major depressive disorder, single episode, unspecified; E78.5 Hyperlipidemia, unspecified; D64.9 Anemia, unspecified; E66.9 Obesity, unspecified; R13.12 Dysphagia, oropharyngeal phase; I10 Essential (primary) hypertension; Z20.822 Contact with and (suspected) exposure to COVID-19; Z68.20 Body mass index [BMI] 20.0-20.9, adult; Z93.1 Gastrostomy status; Z74.01 Bed confinement status; Z83.3 Family history of diabetes mellitus
CPT/HCPCS: 36415; 71045; 74018; 80048; 80053; 80202; 81001; 82550; 82948; 83605; 83735; 83880; 84100; 84145; 84484; 85025; 85610; 85730; 86738; 87040; 87071; 87077; 87088; 87186; 87205; 87449; 87635; 93005; 94640; 94664; C1894; C9803; G0378; J1650; J2543; J3490; J7050; Q9963